=== PATIENT | male | born 1955 | race Caucasian/White ===

== ENCOUNTER 2017-08-13 12:52 | Emergency (ER) | payer OTHER ==
[~2017-08-13] VITALS: Ht 180.3 cm; Wt 112.5 kg
[2017-08-13] MEDS ORDERED: Heparin 2000 units/Ns 1000ml INJ ONE (13:15)
[2017-08-13] MEDS ORDERED: Lidocaine 1% Plain 30 ml INJ ONE (13:15)
--- NOTE | 2017-08-13 13:17 | Emergency Room Report ---
History of Present Illness General Chief Complaint: General Complaint Source: Patient, EMS Present Illness HPI Patient presents from nursing facility with need for long-term antibiotics Patient has been on peripheral antibiotics for osteomyelitis and lower extremity infections Patient at this time is requiring further antibiotic care And was felt by primary physician that PICC line would be more appropriate Patient himself denies any chest pain or shortness of breath Denies any fevers Allergies: Coded Allergies: No Known Allergies (Unverified , 08/13/17) Patient History Past Medical History: see triage record Pertinent Family History: none Reviewed Nursing Documentation: PMH: Agreed, PSxH: Agreed Nursing Documentation-PMH Past Medical History: No History, Except For Hx Cardiac Problems: No - GERD DM 2,HX MRSA ACCUTE KIDNEY FAILURE. Hx Hypertension: Yes Review of Systems All Other Systems: negative except mentioned in HPI Physical Exam Vital Signs Date Time Temp Pulse Resp B/P (MAP) Pulse Ox O2 Delivery O2 Flow Rate FiO2 08/13/17 13:00 97.9 80 18 160/89 96 Room Air Sp02 EP Interpretation: reviewed, normal General Appearance: well appearing, no apparent distress Head: normocephalic, atraumatic Eyes: bilateral eye PERRL, bilateral eye EOMI ENT: hearing grossly normal, normal pharynx, TMs + canals normal, uvula midline Neck: full range of motion, supple, no meningismus, no bony tend Respiratory: lungs clear, normal breath sounds, no rhonchi, no respiratory distress, no retraction, no accessory muscle use Gastrointestinal: non tender, soft Neurologic: alert, oriented x3 Skin: other - Patient has multiple ulcerations, peripheral IV in the right upper arm Lymphatic: no adenopathy Medical Decision Making Diagnostic Impression: Primary Impression: Osteomyelitis ER Course Patient has documented osteomyelitis requiring long-term antibiotics Patient is being provided antibiotics at outpatient facility however not able to be provided IV as there was no definitive IV line Radiology was contacted Unfortunately they are not able to perform this procedure given the number of other procedures are in line At this time patient has had a peripheral IV there does not appear to be any other emergent requirement for PICC line And the patient is transferred back to assisted to continue IV antibiotics Patient's primary physician was notified Last Vital Signs Date Time Temp Pulse Resp B/P (MAP) Pulse Ox O2 Delivery O2 Flow Rate FiO2 08/13/17 13:00 97.9 80 18 160/89 96 Room Air Status: improved Disposition: XFER SNF Condition: Stable Additional Instructions: Patient is provided with the discharge instructions notified to follow up with primary doctor in the next 2-3 days otherwise return to the er with any worsening symptoms. Please note that this report is being documented using [employer] technology. This can lead to erroneous entry secondary to incorrect interpretation by the dictating instrument. TIANNA KHALIL D.O. Aug 13, 2017 13:17
[2017-08-13 16:30] VITALS: BP 140/67
== END 2017-08-13 16:30 ==
LOC: EDBD 12:52 → EMR 13:30
DX: M86.9 Osteomyelitis, unspecified (principal); I10 Essential (primary) hypertension; K21.9 Gastro-esophageal reflux disease without esophagitis; E11.9 Type 2 diabetes mellitus without complications
CPT/HCPCS: 99283; J1644; J2001

== ENCOUNTER 2017-08-19 10:43 | Outpatient (CLI) | payer OTHER ==
--- NOTE | 2017-08-19 15:57 | Diagnostic Imaging Report ---
Indications: Needs long-term IV access Technique: Ultrasound confirms patent compressible left brachial vein. Total sterile technique, including sterile probe cover and sterile gel, hat, mask,, sterile gown, large sterile drape, and preparation with 2% chlorhexidine utilized. Local anesthesia with 1% lidocaine. Under real-time ultrasound guidance, puncture left brachial vein using 21-gauge needle, documented and archived, passage 0.018 guidewire under direct fluoroscopy. This would not pass beyond the level of the subclavian vein. A 5 Mexican peel-away sheath was inserted. Through this was inserted a Kumpe catheter, which was successfully used to direct the guidewire centrally. 5 Mexican Bard. However, dual-lumen power PICC cut to 46 cm. It was inserted through the peel-away sheath., But would not pass through the subclavian vein. Was therefore removed, and a 4 Mexican single-lumen power PICC was cut to 46 cm, inserted through the peel-away sheath. It was successfully directed through the presumably stenosed subclavian vein and into the superior vena cava. Peel-away sheath and guidewire removed. Catheter fixed to the skin. Catheter ports aspirated and flushed. Patient tolerated procedure well, without immediate complication. Digital radiograph documents satisfactory catheter tip position, at the midsuperior vena cava. Total fluoroscopy time one minutes. Total dose area product 9.9 dGycm2 Impression: Successful placement of Bard single-lumen left arm PICC under sonographic and fluoroscopic guidance, as described above. Note evidence of central venous stenosis, necessitating placement of a single-lumen catheter
== END 2017-08-19 12:43 | disposition home or self-care (01) ==
LOC: RAD 10:43
DX: M86.171 Other acute osteomyelitis, right ankle and foot (principal); B95.62 Methicillin resistant Staphylococcus aureus infection as the cause of diseases classified elsewhere; S91.302D Unspecified open wound, left foot, subsequent encounter; E11.621 Type 2 diabetes mellitus with foot ulcer; E78.01 Familial hypercholesterolemia; K21.9 Gastro-esophageal reflux disease without esophagitis; N17.9 Acute kidney failure, unspecified; E11.42 Type 2 diabetes mellitus with diabetic polyneuropathy; F29 Unspecified psychosis not due to a substance or known physiological condition; I10 Essential (primary) hypertension; X58.XXXD Exposure to other specified factors, subsequent encounter
CPT/HCPCS: 36569; 76937

== ENCOUNTER 2017-08-27 17:13 | Inpatient (IN) | payer OTHER, MEDICAID ==
[~2017-08-27] VITALS: Ht 175.3 cm; Wt 99.8 kg
[2017-08-27 17:13] VITALS: BP 178/97
[2017-08-27] MEDS ORDERED: FAMOTIDINE20 MG ORAL (17:50)
[2017-08-27] MEDS ORDERED: GABAPENTIN400 MG ORAL (17:50)
[2017-08-27] MEDS ORDERED: CLINDAMYCI600 MG/51 IV (17:50)
[2017-08-27] MEDS ORDERED: CEFEPIME-D2 GM/50 ML IVPB (17:50)
[2017-08-27] MEDS ORDERED: AMLODIPINE BESY10 MG ORAL (17:50)
[2017-08-27] MEDS ORDERED: COLACE100 MG ORAL (17:50)
[2017-08-27] MEDS ORDERED: HYDRALAZINE HCL10 MG ORAL (17:50)
[2017-08-27] MEDS ORDERED: ATORVASTATIN CA40 MG ORAL (17:50)
[2017-08-27] MEDS ORDERED: HEPARIN SO5000 UNIT2 SUBQ (17:50)
[2017-08-27] MEDS ORDERED: LANTUS SOL100 UNIT/1 SUBQ (17:52)
[2017-08-27] MEDS ORDERED: METRONIDAZ500 MG/100 IVPB (17:52)
[2017-08-27] MEDS ORDERED: ZINC SULFATE220 M1 ORAL (17:52)
[2017-08-27] MEDS ORDERED: QUETIAPINE FUMA50 MG ORAL (17:52)
[2017-08-27 18:05] LABS: BASOPHILS % (AUTO) 0.5 % (0.0-2.0); EOSINOPHILS % (AUTO) 5.9 % (0.0-3.0); LYMPHOCYTES % (AUTO) 18.8 % (20.0-45.0); MEAN CORPUSCULAR HEMOGLOBIN 26.4 PG (27.0-31.0); MEAN CORPUSCULAR HGB CONC 30.5 G/DL (32.0-36.0); MEAN CORPUSCULAR VOLUME 86 FL (80-99); MONOCYTES % (AUTO) 6.7 % (1.0-10.0); NEUTROPHILS % (AUTO) 68.1 % (45.0-75.0); PLATELET COUNT 231 K/UL (150-450); RED CELL DISTRIBUTION WIDTH 16.6 % (11.6-14.8); WHITE BLOOD COUNT 12.5 K/UL (4.8-10.8)
[2017-08-27 18:10] LABS: APPEARANCE,URINE CLEAR; KETONES,URINE NEGATIVE (NEGATIVE); LEUKOCYTE ESTERASE ,URINE 1+ (NEGATIVE); NITRITE,URINE NEGATIVE (NEGATIVE); PH,URINE 6 (4.5-8.0); PROTEIN,URINE 4+ (NEGATIVE); UROBILINOGEN,URINE NORMAL MG/DL (0.0-1.0)
[2017-08-27 18:18] LABS: RBC,URINE 0-2 /HPF (0 - 0); WBC,URINE 0-2 /HPF (0 - 0)
--- NOTE | 2017-08-27 18:37 | Emergency Room Report ---
History of Present Illness General Chief Complaint: Altered Level of Consciousness Source: Patient, Medical Record Present Illness HPI 61-year-old male presents ED for evaluation. Patient brought from retirement. Patient sent for evaluation. Patient is refusing all medical care at that facility including lab work and medication. patient does have a psychiatric history. Upon arrival patient showing no signs of distress. No agitation. States he feels fine. Denies hearing voices. Denies suicidal or homicidal ideation. Denies chest pain or shortness of breath. No aggravating or leading factors. Denies any other associated symptoms. Allergies: Coded Allergies: No Known Allergies (Unverified , 08/13/17) Patient History Past Medical History: HTN Past Surgical History: none Pertinent Family History: none Immunizations: UTD Reviewed Nursing Documentation: PMH: Agreed, PSxH: Agreed Nursing Documentation-PMH Past Medical History: No History, Except For Hx Cardiac Problems: No - GERD DM 2,HX MRSA ACCUTE KIDNEY FAILURE. Hx Hypertension: Yes Review of Systems All Other Systems: negative except mentioned in HPI Physical Exam Vital Signs Date Time Temp Pulse Resp B/P (MAP) Pulse Ox O2 Delivery O2 Flow Rate FiO2 08/27/17 17:07 98.1 74 18 151/93 98 Room Air Sp02 EP Interpretation: reviewed, normal General Appearance: no apparent distress, alert, GCS 15, non-toxic Head: normocephalic, atraumatic Eyes: bilateral eye normal inspection, bilateral eye PERRL ENT: hearing grossly normal, normal pharynx, no angioedema, normal voice Neck: full range of motion, supple/symm/no masses Respiratory: chest non-tender, lungs clear, normal breath sounds, speaking full sentences Cardiovascular #1: regular rate, rhythm, no edema Cardiovascular #2: 2+ carotid (R), 2+ carotid (L), 2+ radial (R), 2+ radial (L) , 2+ dorsalis pedis (R), 2+ dorsalis pedis (L) Gastrointestinal: normal bowel sounds, non tender, soft, non-distended, no guarding, no rebound Rectal: deferred Genitourinary: normal inspection, no CVA tenderness Musculoskeletal: back normal, gait/station normal, normal range of motion, non- tender Neurologic: alert, oriented x3, responsive, motor strength/tone normal, sensory intact, speech normal Psychiatric: judgement/insight normal, memory normal, mood/affect normal, no suicidal/homicidal ideation Reflexes: 3+ bicep (R), 3+ bicep (L), 3+ tricep (R), 3+ tricep (L), 3+ knee (R) , 3+ knee (L) Skin: normal color, no rash, warm/dry, well hydrated Lymphatic: no adenopathy Medical Decision Making Diagnostic Impression: Primary Impression: Altered level of consciousness Additional Impressions: Refusal of care by patient Renal insufficiency ER Course Hospital Course 61-year-old male presenting to ED with generalized weakness, refusing care at retirement Differential diagnoses include: Pneumonia, UTI, sepsis, dehydration, PA/ unstable angina, failure to thrive Clinical course Patient placed on stretcher. On bus monitor with tachycardia. After initial history and physical, I ordered labs, IV fluids, EKG Labs - noted luekocytosis, hb/hct stable, BUN/Cr elevated, trop negative EKG - NSR, no acute ischemic changes interpreted by me patient refused CXR Case discussed with Dr Trinidad and they agreed to admit patient to their service for further care and support I feel this is a highly complex case requiring extensive working including EKG/ Rhythm strip, Xray/CT/US, Blood/urine lab work, repeat exams while in ED, and administration of strong opiates/narcotics for pain control, admission to hospital or close patient follow up. Diagnosis - ALOC, refusal of care by patient, renal insufficiency Patient admitted to floor in serious condition Labs Test 08/27/17 17:45 08/27/17 17:49 White Blood Count 12.5 K/UL (4.8-10.8) Red Blood Count 3.10 M/UL (4.70-6.10) Hemoglobin 8.2 G/DL (14.2-18.0) Hematocrit 26.7 % (42.0-52.0) Mean Corpuscular Volume 86 FL (80-99) Mean Corpuscular Hemoglobin 26.4 PG (27.0-31.0) Mean Corpuscular Hemoglobin Concent 30.5 G/DL (32.0-36.0) Red Cell Distribution Width 16.6 % (11.6-14.8) Platelet Count 231 K/UL (150-450) Mean Platelet Volume 7.0 FL (6.5-10.1) Neutrophils (%) (Auto) 68.1 % (45.0-75.0) Lymphocytes (%) (Auto) 18.8 % (20.0-45.0) Monocytes (%) (Auto) 6.7 % (1.0-10.0) Eosinophils (%) (Auto) 5.9 % (0.0-3.0) Basophils (%) (Auto) 0.5 % (0.0-2.0) Sodium Level 140 MMOL/L (136-145) Potassium Level 3.6 MMOL/L (3.5-5.1) Chloride Level 106 MMOL/L (98-107) Carbon Dioxide Level 22 MMOL/L (21-32) Anion Gap 12 mmol/L (5-15) Blood Urea Nitrogen 43 mg/dL (7-18) Creatinine 1.9 MG/DL (0.55-1.30) Estimat Glomerular Filtration Rate 36.5 mL/min (>60) Glucose Level 334 MG/DL (74-106) Calcium Level 8.7 MG/DL (8.5-10.1) Total Bilirubin 0.3 MG/DL (0.2-1.0) Aspartate Amino Transf (AST/SGOT) 19 U/L (15-37) Alanine Aminotransferase (ALT/SGPT) 23 U/L (12-78) Alkaline Phosphatase 68 U/L (46-116) Total Creatine Kinase 149 U/L (26-140) Creatine Kinase MB 2.3 NG/ML (0.0-3.6) Creatine Kinase MB Relative Index 1.5 Troponin I 0.007 ng/mL (0.000-0.056) Total Protein 8.0 G/DL (6.4-8.2) Albumin 2.4 G/DL (3.4-5.0) Globulin 5.1 g/dL Albumin/Globulin Ratio 0.5 (1.0-2.7) Urine Color Pale yellow Urine Appearance Clear Urine pH 6 (4.5-8.0) Urine Specific [place] 1.015 (1.005-1.035) Urine Protein 4+ (NEGATIVE) Urine Glucose (UA) 4+ (NEGATIVE) Urine Ketones Negative (NEGATIVE) Urine Occult Blood 3+ (NEGATIVE) Urine Nitrite Negative (NEGATIVE) Urine Bilirubin Negative (NEGATIVE) Urine Urobilinogen Normal MG/DL (0.0-1.0) Urine Leukocyte Esterase 1+ (NEGATIVE) Urine RBC 0-2 /HPF (0 - 0) Urine WBC 0-2 /HPF (0 - 0) Urine Squamous Epithelial Cells None /LPF (NONE/OCC) Urine Bacteria None /HPF (NONE) EKG Diagnostic Results Rate: normal Rhythm: NSR ST Segments: no acute changes ASA given to the pt in ED: No Rhythm Strip Diag. Results EP Interpretation: yes Rhythm: NSR, no PVC's, no ectopy Last Vital Signs Date Time Temp Pulse Resp B/P (MAP) Pulse Ox O2 Delivery O2 Flow Rate FiO2 08/27/17 17:13 83 16 178/97 100 Room Air 08/27/17 17:07 98.1 Status: improved Disposition: ADMITTED INPATIENT Condition: Serious Referrals: SHARAD BARBA (PCP) SAIDA VASQUEZ M.D. Aug 27, 2017 18:37
[2017-08-27 18:51] VITALS: BP 159/71
[2017-08-27 18:57] LABS: ANION GAP 12 mmol/L (5-15); CARBON DIOXIDE 22 MMOL/L (21-32); CHLORIDE 106 MMOL/L (98-107); POTASSIUM 3.6 MMOL/L (3.5-5.1); SODIUM 140 MMOL/L (136-145)
[2017-08-27 18:58] LABS: ALANINE AMINOTRANSFERASE 23 U/L (12-78); ASPARTATE AMINO TRANSFERASE 19 U/L (15-37); CKMB 2.3 NG/ML (0.0-3.6)
[2017-08-27] MEDS ORDERED: LORazepam Inj 2mg/ml 1ml IV PRN (19:00)
[2017-08-27] MEDS ORDERED: Morphine Sulfate 2mg/ml Inj IVP PRN (19:00)
[2017-08-27] MEDS ORDERED: Mylanta II UD 30ml ORAL PRN (19:00)
[2017-08-27 19:19] LABS: CREATININE 1.9 MG/DL (0.55-1.30); GLOMERULAR FILTRATION RATE 36.5 mL/min (>60)
[2017-08-27 19:20] LABS: ALBUMIN/GLOBULIN RATIO 0.5 (1.0-2.7); CALCIUM 8.7 MG/DL (8.5-10.1)
[2017-08-27 20:22] VITALS: BP 161/78
[2017-08-27] MEDS ORDERED: ACETAMINOPHEN325 M1 ORAL (20:55)
[2017-08-27] MEDS ORDERED: VITAMIN C500 M1 ORAL (20:55)
[2017-08-27] MEDS ORDERED: HUMALOG100 UNIT/4 SUBQ (20:55)
[2017-08-27] MEDS ORDERED: MULTIVITAMINS1 EA14 PO (20:55)
[2017-08-27] MEDS ORDERED: Zolpidem 5mg tab ORAL PRN (21:00)
[2017-08-27] MEDS ORDERED: Miralax 17gm pkt ORAL PRN (21:00)
[2017-08-27] MEDS: HydrALAZINE 10mg Tab ORAL SCH (22:14)
[2017-08-28 04:00] VITALS: BP 155/88
[2017-08-28] MEDS: HydrALAZINE 10mg Tab ORAL SCH ×3 (05:24→17:29)
[2017-08-28] MEDS: NovoLOG Insulin Flexpen SUBQ SCH ×4 (06:31→20:42)
[2017-08-28 07:31] LABS: BASOPHILS % (AUTO) 0.6 % (0.0-2.0); EOSINOPHILS % (AUTO) 6.3 % (0.0-3.0); LYMPHOCYTES % (AUTO) 25.1 % (20.0-45.0); MEAN CORPUSCULAR HEMOGLOBIN 27.5 PG (27.0-31.0); MEAN CORPUSCULAR HGB CONC 32.4 G/DL (32.0-36.0); MEAN CORPUSCULAR VOLUME 85 FL (80-99); MEAN PLATELET VOLUME 7.5 FL (6.5-10.1); MONOCYTES % (AUTO) 7.3 % (1.0-10.0); NEUTROPHILS % (AUTO) 60.8 % (45.0-75.0); PLATELET COUNT 264 K/UL (150-450); RED BLOOD COUNT 4.12 M/UL (4.70-6.10); RED CELL DISTRIBUTION WIDTH 16.2 % (11.6-14.8); WHITE BLOOD COUNT 10.3 K/UL (4.8-10.8)
--- NOTE | 2017-08-28 07:48 | History and Physical ---
History of Present Illness General Date patient seen: Aug 28, 2017 Time patient seen: 07:00 Reason for Hospitalization: Altered Level of Consciousness Present Illness HPI 61-y/o male with PMH of psychiatric disorder, HTN, DM, recent acute osteo R ankle ( ? sp Rx), kidney disorder, presented to ED for evaluation. Patient was sent from longterm for evaluation. Per nursing staff, Patient was refusing all medical care at that facility including lab work and medication. Upon arrival no signs of distress. No agitation. Denied suicidal or homicidal ideation. Denied hallucinations ( auditory and visual) Denied chest pain and shortness of breath. per patient, he had problem with [facility]IG[facility] MENDER at the facility, requested to be transferred to another facility upon discharge workup in ED revealed leukocytosis-12.5 afebrile VSS anemia -8.2/26.7 renal failure -BUN-43 and creat 1.9 BS -334 UA negative CXR no acute cardiopulmonary pathology patient was admitted for further management Allergies: Coded Allergies: No Known Allergies (Unverified , 08/13/17) Medication History Scheduled Amlodipine Besylate* (Amlodipine Besylate*), 10 MG ORAL DAILY, (Reported) Ascorbic Acid* (Vitamin C*), 500 MG ORAL DAILY, (Reported) Atorvastatin Calcium* (Atorvastatin Calcium*), 40 MG ORAL BEDTIME, (Reported) Cefepime Hcl/D5w (Cefepime-Dextrose 2 Gm/50 Ml), 2 GM IVPB EVERY 12 HOURS, ( Reported) Clindamycin in 0.9 % Sod Chlor (Clindamycin 600 Mg/50 Ml-Ns), 600 MG IV EVERY 8 HOURS, (Reported) Docusate Sodium* (Colace*), 100 MG ORAL DAILY, (Reported) Famotidine (Famotidine), 20 MG ORAL DAILY, (Reported) Gabapentin* (Gabapentin*), 400 MG ORAL THREE TIMES A DAY, (Reported) Heparin Sod (Porcine) (Heparin Sodium*), 5,000 UNITS SUBQ EVERY 8 HOURS, ( Reported) Hydralazine Hcl* (Hydralazine Hcl*), 10 MG ORAL EVERY 6 HOURS, (Reported) Insulin Glargine (Lantus), 0 SUBQ BEDTIME, (Reported) Insulin Lispro (Humalog), 0 SUBQ AC+HS, (Reported) Metronidazole/Sodium Chloride* (Metronidazole 500 Mg/100 Ml*), 500 MG IVPB EVERY 8 HOURS, (Reported) Multivitamin (Multivitamins), 1 EACH PO DAILY, (Reported) Quetiapine Fumarate* (Quetiapine Fumarate*), 25 MG ORAL DAILY, (Reported) Zinc Sulfate (Zinc Sulfate*), 220 MG ORAL DAILY, (Reported) Scheduled PRN Acetaminophen* (Acetaminophen 325MG Tablet*), 325 MG ORAL Q4H PRN for Mild Pain/ Temp > 100.5, (Reported) Patient History Healthcare decision maker self Resuscitation status Full Code Advanced Directive on File Review of Systems Constitutional: Reports: weakness Eye: Reports: no symptoms ENT: Reports: no symptoms Respiratory: Reports: no symptoms Cardiovascular: Reports: no symptoms, other - HTN Gastrointestinal: Reports: no symptoms Genitourinary: Reports: no symptoms Musculoskeletal: Reports: no symptoms Skin: Reports: other - R ankle OM Psychiatric: Reports: other - psychiatric disorder Neurological: Reports: no symptoms Endocrine: Reports: other - diabetes Hematologic/Lymphatic: Reports: no symptoms Physical Exam General Appearance: WD/WN, no apparent distress, alert, obese Lines, tubes and drains: peripheral HEENT: normocephalic, atraumatic, anicteric, mucous membranes moist, PERRL Neck: supple Respiratory/Chest: lungs clear, no respiratory distress, no accessory muscle use Cardiovascular/Chest: normal rate, regular rhythm Abdomen: normal bowel sounds, non tender, soft - obese Skin Exam: warm/dry Neurologic: alert, responsive Musculoskeletal: normal muscle bulk Last 24 Hour Vital Signs Date Time Temp Pulse Resp B/P (MAP) Pulse Ox O2 Delivery O2 Flow Rate FiO2 08/28/17 05:24 155/88 08/28/17 04:00 97.5 82 21 155/88 95 Room Air 08/28/17 00:00 98.4 88 20 97 Room Air 88 08/27/17 22:14 175/83 08/27/17 20:30 98.2 79 16 161/78 100 Room Air 08/27/17 20:22 98.2 79 16 161/78 100 Room Air 08/27/17 18:51 79 16 159/71 100 Room Air 08/27/17 17:13 83 16 178/97 100 Room Air 08/27/17 17:07 98.1 74 18 151/93 98 Room Air Laboratory Tests Test 08/27/17 17:45 08/27/17 17:49 10/21/17 05:15 White Blood Count 12.5 K/UL (4.8-10.8) H Pending Red Blood Count 3.10 M/UL (4.70-6.10) L Pending Hemoglobin 8.2 G/DL (14.2-18.0) L Pending Hematocrit 26.7 % (42.0-52.0) L Pending Mean Corpuscular Volume 86 FL (80-99) Pending Mean Corpuscular Hemoglobin 26.4 PG (27.0-31.0) L Pending Mean Corpuscular Hemoglobin Concent 30.5 G/DL (32.0-36.0) L Pending Red Cell Distribution Width 16.6 % (11.6-14.8) H Pending Platelet Count 231 K/UL (150-450) Pending Mean Platelet Volume 7.0 FL (6.5-10.1) Pending Neutrophils (%) (Auto) 68.1 % (45.0-75.0) Pending Lymphocytes (%) (Auto) 18.8 % (20.0-45.0) L Pending Monocytes (%) (Auto) 6.7 % (1.0-10.0) Pending Eosinophils (%) (Auto) 5.9 % (0.0-3.0) H Pending Basophils (%) (Auto) 0.5 % (0.0-2.0) Pending Sodium Level 140 MMOL/L (136-145) Pending Potassium Level 3.6 MMOL/L (3.5-5.1) Pending Chloride Level 106 MMOL/L (98-107) Pending Carbon Dioxide Level 22 MMOL/L (21-32) Pending Anion Gap 12 mmol/L (5-15) Blood Urea Nitrogen 43 mg/dL (7-18) H Pending Creatinine 1.9 MG/DL (0.55-1.30) H Pending Estimat Glomerular Filtration Rate 36.5 mL/min (>60) Pending Glucose Level 334 MG/DL (74-106) H Pending Calcium Level 8.7 MG/DL (8.5-10.1) Pending Total Bilirubin 0.3 MG/DL (0.2-1.0) Pending Aspartate Amino Transf (AST/SGOT) 19 U/L (15-37) Pending Alanine Aminotransferase (ALT/SGPT) 23 U/L (12-78) Pending Alkaline Phosphatase 68 U/L (46-116) Pending Total Creatine Kinase 149 U/L (26-140) H Creatine Kinase MB 2.3 NG/ML (0.0-3.6) Creatine Kinase MB Relative Index 1.5 Troponin I 0.007 ng/mL (0.000-0.056) Total Protein 8.0 G/DL (6.4-8.2) Pending Albumin 2.4 G/DL (3.4-5.0) L Pending Globulin 5.1 g/dL Pending Albumin/Globulin Ratio 0.5 (1.0-2.7) L Urine Color Pale yellow Urine Appearance Clear Urine pH 6 (4.5-8.0) Urine Specific [place] 1.015 (1.005-1.035) Urine Protein 4+ (NEGATIVE) H Urine Glucose (UA) 4+ (NEGATIVE) H Urine Ketones Negative (NEGATIVE) Urine Occult Blood 3+ (NEGATIVE) H Urine Nitrite Negative (NEGATIVE) Urine Bilirubin Negative (NEGATIVE) Urine Urobilinogen Normal MG/DL (0.0-1.0) Urine Leukocyte Esterase 1+ (NEGATIVE) H Urine RBC 0-2 /HPF (0 - 0) H Urine WBC 0-2 /HPF (0 - 0) Urine Squamous Epithelial Cells None /LPF (NONE/OCC) Urine Bacteria None /HPF (NONE) Hemoglobin A1c Pending Triglycerides Level Pending Cholesterol Level Pending LDL Cholesterol Pending HDL Cholesterol Pending Cholesterol/HDL Ratio Pending Thyroid Stimulating Hormone (TSH) Pending Height (Feet): 5 Height (Inches): 9.00 Weight (Pounds): 220 Medications Current Medications Medications (Trade) Dose Ordered Sig/Eveline Route PRN Reason Start Time Stop Time Status Last Admin Dose Admin Acetaminophen (Tylenol) 650 mg Q4H PRN ORAL T>100.5 08/27/17 19:00 09/26/17 18:59 Al Hydroxide/Mg Hydroxide (Mylanta II) 30 ml Q6H PRN ORAL dyspepsia 08/27/17 19:00 09/26/17 18:59 Amlodipine Besylate (Norvasc) 10 mg DAILY ORAL 08/28/17 09:00 09/27/17 08:59 Atorvastatin Calcium (Lipitor) 40 mg BEDTIME ORAL 08/27/17 21:00 09/26/17 20:59 08/27/17 22:14 Chlorhexidine Gluconate (Susan-Hex 2%) 1 applic DAILY@1999 TOPIC 08/28/17 20:00 09/27/17 19:59 Dextrose (Dextrose 50%) STAT PRN IV Hypoglycemia 08/27/17 22:30 09/26/17 22:29 Gabapentin (Neurontin) 400 mg THREE TIMES A DAY ORAL 08/28/17 09:00 09/27/17 08:59 Hydralazine HCl (Apresoline) 10 mg EVERY 6 HOURS ORAL 08/28/17 00:00 09/27/17 00:00 08/28/17 05:24 Insulin Aspart (NovoLOG) BEFORE MEALS AND HS SUBQ 08/28/17 06:30 09/27/17 06:29 08/28/17 06:31 Insulin Detemir (Levemir) 20 units BEDTIME SUBQ 08/28/17 21:00 09/27/17 20:59 Lorazepam (Ativan 2mg/ml 1ml) 0.5 mg Q4H PRN IV For Anxiety 08/27/17 19:00 09/03/17 18:59 Morphine Sulfate (Morphine Sulfate) 1 mg Q4H PRN IVP PAIN 4-10 08/27/17 19:00 09/03/17 18:59 Ondansetron HCl (Zofran) 4 mg Q6H PRN IVP Nausea & Vomiting 08/27/17 19:00 09/26/17 18:59 Polyethylene Glycol (Miralax) 17 gm HSPRN PRN ORAL Constipation 08/27/17 21:00 09/26/17 20:59 Quetiapine Fumarate (SEROquel) 25 mg DAILY ORAL 08/28/17 09:00 09/27/17 08:59 Zolpidem Tartrate (Ambien) 5 mg HSPRN PRN ORAL Insomnia 08/27/17 21:00 09/03/17 20:59 Assessment/Plan Assessment/Plan ASSESSMENT acute toxic metabolic encephalopathy -resolved ARF vs CKD acute OM R ankle anemia hyperglycemia 2 to DM refusal of care DM HTN bilateral leg wounds leukocytosis PLAN OF CARE MS floor IVF, monitor renal parameters, lytes , avoid nephrotoxic renal US nephro eval ID eval will wait for ID eval re abx regimen for a R ankle OM wound care nurse eval re recommendations for further wound care BP management with CCB and Hydralazine, optimize as needed continue statin check lipid panel resume psych meds psych eval BS management with SS of insulin, check HgA1c optimize further as needed venous Duplex BLE dietary eval CXR O2 HHN prn urine tox screen bowel regimen heme eval anemia w/up, monitor counts, transfuse prn stool OB and CEA urine tox screen dc event planner consult for possible transfer to another [facility] case discussed and evaluated by supervising physician Tano ([facility]),Fiordaliza MARTIN Aug 28, 2017 07:48
[2017-08-28 08:32] VITALS: BP 141/87
[2017-08-28 08:32] LABS: ALANINE AMINOTRANSFERASE 14 U/L (12-78); ALBUMIN/GLOBULIN RATIO 0.5 (1.0-2.7); ANION GAP 8 mmol/L (5-15); ASPARTATE AMINO TRANSFERASE 12 U/L (15-37); CALCIUM 8.6 MG/DL (8.5-10.1); CARBON DIOXIDE 24 MMOL/L (21-32); CHLORIDE 105 MMOL/L (98-107); CHOLESTEROL 135 MG/DL (< 200); CHOLESTEROL/HDL RATIO 5.2 (3.3-4.4); CREATININE 1.9 MG/DL (0.55-1.30); GLOMERULAR FILTRATION RATE 36.5 mL/min (>60); POTASSIUM 4.3 MMOL/L (3.5-5.1); SODIUM 137 MMOL/L (136-145); THYROID STIMULATING HORMONE 1.084 uiU/mL (0.360-3.740)
[2017-08-28 11:18] VITALS: BP 147/83
--- NOTE | 2017-08-28 11:24 | Diagnostic Imaging Report ---
Indication: Dyspnea Comparison: None A single view chest radiograph was obtained. Findings: Cardiomediastinal appearance is within normal limits for age. Pulmonary vascularity is appropriate. The diaphragmatic contour is smooth and costophrenic angles are sharp. No pleural effusions are identified. The bones are unremarkable. Impression: No acute findings
[2017-08-28 14:12] LABS: FERRITIN 34 NG/ML (8-388)
[2017-08-28 14:35] LABS: FOLIC ACID 11.4 NG/ML (3.1-17.5); IRON 32 ug/dL (50-175); TOTAL IRON BINDING CAPACITY 178 ug/dL (250-450)
[2017-08-28 15:58] VITALS: BP 131/73
[2017-08-28 20:00] VITALS: BP 159/84
[2017-08-28] MEDS: Dyna-Hex 2% Top Sol 2oz TOPIC SCH (20:43)
[2017-08-28] MEDS ORDERED: Levemir Flexpen SUBQ SCH (21:00)
[2017-08-28] MEDS ORDERED: Haloperidol Decanoate 50mg Inj IM ONE (23:30)
[2017-08-29] VITALS: BP 153/79
[2017-08-29] MEDS: HydrALAZINE 10mg Tab ORAL SCH ×4 (00:04→17:09)
--- NOTE | 2017-08-29 01:15 | Consultation ---
DATE OF CONSULTATION: 08/28/2017 TIME SEEN: At 11 a.m. CONSULTING PHYSICIAN: Kong Starr D.O. CHIEF COMPLAINT: Increased confusion. HISTORY OF PRESENT ILLNESS: This is a 61-year-old male from [facility] presented with above-mentioned diagnosis, also foot wound, diabetes. The patient admitted to medical floor for further treatment. Currently, more alert. No complaints. PAST MEDICAL HISTORY: Altered mental status, foot wound, diabetes, and hypertension. PAST SURGICAL HISTORY: Foot surgery. MEDICATIONS: Levemir, Norvasc, Neurontin, Seroquel, Apresoline, Lipitor, MiraLAX, Ambien, Tylenol, morphine and Zofran. ALLERGIES: Denies. SOCIAL HISTORY: Positive smoking. No alcohol. No intravenous drug abuse. FAMILY HISTORY: Noncontributory. REVIEW OF SYSTEMS: No chest pain. No short of breath. No nausea, vomiting, or diarrhea. PHYSICAL EXAMINATION: GENERAL: Calm in bed, oriented x2, in no acute distress. VITAL SIGNS: Temperature is 97 degrees, pulse 85, respirations 20, and blood pressure 141/87. CARDIOVASCULAR: No murmurs. LUNGS: Poor exchange. ABDOMEN: Bowel sounds are positive. Nontender and nondistended. EXTREMITIES: No cyanosis, clubbing, or edema. NEUROLOGICAL: The patient moves all extremities, but does not want to follow commands. Bilateral foot dressing is slightly soiled. No bleeding noted. LABORATORY AND DIAGNOSTIC DATA: Hemoglobin 11.3, otherwise CBC is normal. BMP show BUN and creatinine of 30/1.9 and glucose 295 otherwise, BMP is normal. Urinalysis shows 1+ leukocyte esterase. ASSESSMENT: 1. Altered mental status. 2. Foot wound bilaterally. 3. Renal insufficiency. 4. Diabetes. 5. Hypertension. 6. Anemia. PLAN: 1. Wound care. 2. Antibiotics per Infectious Disease. 3. Blood pressure and blood sugar control. 4. Nephrology followup. 5. Dietary followup. 6. Psychiatric treatment. 7. OT/PT. 8. Dietary evaluation. 9. CBC and BMP in the morning. Kong Starr D.O. DR: KAYLA JOB#: [id number] CC:
[2017-08-29 03:11] VITALS: BP 152/90
[2017-08-29] MEDS: NovoLOG Insulin Flexpen SUBQ SCH ×6 (06:27→21:03)
[2017-08-29 07:46] LABS: BASOPHILS % (AUTO) 0.5 % (0.0-2.0); EOSINOPHILS % (AUTO) 4.5 % (0.0-3.0); LYMPHOCYTES % (AUTO) 27.6 % (20.0-45.0); MEAN CORPUSCULAR HEMOGLOBIN 27.6 PG (27.0-31.0); MEAN CORPUSCULAR HGB CONC 32.5 G/DL (32.0-36.0); MEAN CORPUSCULAR VOLUME 85 FL (80-99); MEAN PLATELET VOLUME 7.4 FL (6.5-10.1); MONOCYTES % (AUTO) 6.4 % (1.0-10.0); PLATELET COUNT 249 K/UL (150-450); RED BLOOD COUNT 4.06 M/UL (4.70-6.10); RED CELL DISTRIBUTION WIDTH 16.7 % (11.6-14.8); WHITE BLOOD COUNT 9.8 K/UL (4.8-10.8)
[2017-08-29 08:09] VITALS: BP 129/78
[2017-08-29 08:16] LABS: ANION GAP 8 mmol/L (5-15); CALCIUM 8.3 MG/DL (8.5-10.1); CARBON DIOXIDE 23 MMOL/L (21-32); CHLORIDE 108 MMOL/L (98-107); CREATININE 1.8 MG/DL (0.55-1.30); GLOMERULAR FILTRATION RATE 38.8 mL/min (>60); POTASSIUM 5.3 MMOL/L (3.5-5.1); SODIUM 139 MMOL/L (136-145)
--- NOTE | 2017-08-29 08:24 | Pulmonology Progress Note ---
Assessment/Plan Assessment/Plan ASSESSMENT acute toxic metabolic encephalopathy -resolved ARF vs CKD acute OM R ankle anemia hyperglycemia 2 to DM refusal of care DM OOC HTN PLAN OF CARE MS floor IVF, monitor renal parameters, lytes , avoid nephrotoxic renal US nephro eval mental status back to normal acute encephalopathy possibly combination of psych disorder and renal failure urine tox screen negative ID eval still pending we will start abx that patient was on before : Cefepime 2 g IV q 12 till 09/16/17 Clindamycin 600 mg IV q 8 till 09/16 Flagyl 500 mg IV q 8 till 09/08 ID can modify treatment later when see the patient wound care nurse eval re recommendations for further wound care BP management with CCB and Hydralazine, optimize as needed continue statin lipid panel with elevated TG, otherwise stable educated on low fat low cholesterol diet resume psych meds psych eval BS management with SS of insulin, HgA1c -11.0, not at goal increase Levemir to bid andstarted on premeal insulin, SS of insulin prn venous Duplex BLE dietary eval CXR O2 HHN prn urine tox screen negative bowel regimen heme eval anemia w/up noted monitor counts, transfuse prn stool OB and CEA urine tox screen dc site planner consult for possible transfer to another [facility] case discussed and evaluated by supervising physician Subjective Allergies: Coded Allergies: No Known Allergies (Unverified , 08/13/17) Subjective no signs of distress denies CP, SOB no n/v/diarrhea, no abdominal pain creat remain elevated Objective Last 24 Hour Vital Signs Date Time Temp Pulse Resp B/P (MAP) Pulse Ox O2 Delivery O2 Flow Rate FiO2 08/29/17 08:09 97.9 78 20 129/78 96 Room Air 08/29/17 05:48 152/90 08/29/17 03:11 97.2 71 18 152/90 99 Room Air 08/29/17 00:04 153/79 08/29/17 00:00 97.5 76 22 153/79 96 Room Air 08/28/17 20:00 97.2 82 20 159/84 96 Room Air 08/28/17 17:29 131/73 08/28/17 15:58 97.2 82 20 131/73 96 Room Air 08/28/17 12:00 147/83 08/28/17 11:18 97.5 76 19 147/83 97 Room Air 08/28/17 09:21 85 141/87 08/28/17 08:32 97.2 85 20 141/87 98 Room Air Objective General Appearance: WD/WN, no apparent distress, alert, obese Lines, tubes and drains: peripheral HEENT: normocephalic, atraumatic, anicteric, mucous membranes moist, PERRL Neck: supple Respiratory/Chest: lungs clear, no respiratory distress, no accessory muscle use Cardiovascular/Chest: normal rate, regular rhythm Abdomen: normal bowel sounds, non tender, soft , obese Skin Exam: warm/dry, bilateral leg wounds Neurologic: alert, responsive Musculoskeletal: normal muscle bulk Laboratory Tests 08/28/17 16:15: Urine Opiates Screen Negative, Urine Barbiturates Screen Negative, Phencyclidine (PCP) Screen Negative, Urine Amphetamines Screen Negative, Urine Benzodiazepines Screen Negative, Urine Cocaine Screen Negative, Urine Marijuana (THC) Screen Negative 08/29/17 00:45: Urine Eosinophils [Pending], Urine Random Creatinine [Pending], Urine Random Microalbumin [Pending], Urine Random Total Protein 487H, Urine Random Sodium 93 , Urine Creatinine 51.0, Urine Microalbumin/Creatinine Ratio [Pending] 08/29/17 05:40: White Blood Count 9.8, Red Blood Count 4.06L, Hemoglobin 11.2L, Hematocrit 34.5L , Mean Corpuscular Volume 85, Mean Corpuscular Hemoglobin 27.6, Mean Corpuscular Hemoglobin Concent 32.5, Red Cell Distribution Width 16.7H, Platelet Count 249, Mean Platelet Volume 7.4, Neutrophils (%) (Auto) 61.0, Lymphocytes (%) (Auto) 27.6, Monocytes (%) (Auto) 6.4, Eosinophils (%) (Auto) 4.5H, Basophils (%) (Auto) 0.5, Sodium Level [Pending], Potassium Level [Pending ], Chloride Level [Pending], Carbon Dioxide Level [Pending], Blood Urea Nitrogen [Pending], Creatinine [Pending], Estimat Glomerular Filtration Rate [ Pending], Glucose Level [Pending], Calcium Level [Pending] Current Medications Medications (Trade) Dose Ordered Sig/Eveline Route PRN Reason Start Time Stop Time Status Last Admin Dose Admin Acetaminophen (Tylenol) 650 mg Q4H PRN ORAL T>100.5 08/27/17 19:00 09/26/17 18:59 Al Hydroxide/Mg Hydroxide (Mylanta II) 30 ml Q6H PRN ORAL dyspepsia 08/27/17 19:00 09/26/17 18:59 Amlodipine Besylate (Norvasc) 10 mg DAILY ORAL 08/28/17 09:00 09/27/17 08:59 08/28/17 09:21 Atorvastatin Calcium (Lipitor) 40 mg BEDTIME ORAL 08/27/17 21:00 09/26/17 20:59 08/28/17 20:39 Chlorhexidine Gluconate (Susan-Hex 2%) 1 applic DAILY@2000 TOPIC 08/28/17 20:00 09/27/17 19:59 08/28/17 20:43 Dextrose (Dextrose 50%) STAT PRN IV Hypoglycemia 08/27/17 22:30 09/26/17 22:29 Gabapentin (Neurontin) 400 mg THREE TIMES A DAY ORAL 08/28/17 09:00 09/27/17 08:59 08/28/17 17:29 Haloperidol Decanoate (Haldol) 50 mg ONCE ONCE IM 08/29/17 09:00 08/29/17 09:01 Hydralazine HCl (Apresoline) 10 mg EVERY 6 HOURS ORAL 08/28/17 00:00 09/27/17 00:00 08/29/17 05:48 Insulin Aspart (NovoLOG) BEFORE MEALS AND HS SUBQ 08/28/17 06:30 09/27/17 06:29 08/29/17 06:27 Insulin Detemir (Levemir) 20 units BEDTIME SUBQ 08/28/17 21:00 09/27/17 20:59 08/28/17 20:41 Lorazepam (Ativan 2mg/ml 1ml) 0.5 mg Q4H PRN IV For Anxiety 08/27/17 19:00 09/03/17 18:59 Morphine Sulfate (Morphine Sulfate) 1 mg Q4H PRN IVP PAIN 4-10 08/27/17 19:00 09/03/17 18:59 Ondansetron HCl (Zofran) 4 mg Q6H PRN IVP Nausea & Vomiting 08/27/17 19:00 11/19/17 18:59 Polyethylene Glycol (Miralax) 17 gm HSPRN PRN ORAL Constipation 08/27/17 21:00 09/26/17 20:59 Risperidone (RisperDAL) 2 mg BEDTIME ORAL 08/29/17 21:00 09/28/17 20:59 Sodium Chloride 1,000 ml @ 75 mls/hr [id number] IV 08/28/17 14:00 09/27/17 13:59 08/29/17 02:26 Zolpidem Tartrate (Ambien) 5 mg HSPRN PRN ORAL Insomnia 08/27/17 21:00 09/03/17 20:59 [place] ([facility])Fiordaliza NP Aug 29, 2017 08:24
[2017-08-29] MEDS ORDERED: Haloperidol Decanoate 50mg Inj IM ONE (09:00)
[2017-08-29] MEDS: Levemir Flexpen SUBQ SCH ×2 (09:19→17:13)
--- NOTE | 2017-08-29 09:36 | General Progress Note ---
Assessment/Plan Problem List: (1) Renal insufficiency ICD Codes: N28.9 - Disorder of kidney and ureter, unspecified SNOMED: 685637553 (2) Altered level of consciousness ICD Codes: R40.4 - Transient alteration of awareness SNOMED: 5193773 (3) Refusal of care by patient ICD Codes: Z53.29 - Procedure and treatment not carried out because of patient' s decision for other reasons SNOMED: 564321410, 371908051 (4) Osteomyelitis of ankle ICD Codes: M86.9 - Osteomyelitis, unspecified SNOMED: 624549210 (5) Psychiatric diagnosis ICD Codes: F99 - Mental disorder, not otherwise specified SNOMED: 06209888, 339469655 (6) acute renal failrue (7) Anemia ICD Codes: D64.9 - Anemia, unspecified SNOMED: 878874876 Status: stable, progressing, tolerating diet Assessment/Plan ot pt diet ot pt diet abx Subjective Constitutional: Reports: weakness Allergies: Coded Allergies: No Known Allergies (Unverified , 08/13/17) All Systems: reviewed and negative except above Subjective calm in bed Objective Last 24 Hour Vital Signs Date Time Temp Pulse Resp B/P (MAP) Pulse Ox O2 Delivery O2 Flow Rate FiO2 08/29/17 09:16 78 129/78 08/29/17 08:09 97.9 78 20 129/78 96 Room Air 08/29/17 05:48 152/90 08/29/17 03:11 97.2 71 18 152/90 99 Room Air 08/29/17 00:04 153/79 08/29/17 00:00 97.5 76 22 153/79 96 Room Air 08/28/17 20:00 97.2 82 20 159/84 96 Room Air 08/28/17 17:29 131/73 08/28/17 15:58 97.2 82 20 131/73 96 Room Air 08/28/17 12:00 147/83 08/28/17 11:18 97.5 76 19 147/83 97 Room Air Laboratory Tests 08/28/17 16:15: Urine Opiates Screen Negative, Urine Barbiturates Screen Negative, Phencyclidine (PCP) Screen Negative, Urine Amphetamines Screen Negative, Urine Benzodiazepines Screen Negative, Urine Cocaine Screen Negative, Urine Marijuana (THC) Screen Negative 08/29/17 00:45: Urine Eosinophils None seen, Urine Random Creatinine [Pending], Urine Random Microalbumin [Pending], Urine Random Total Protein 487H, Urine Random Sodium 93 , Urine Creatinine 51.0, Urine Microalbumin/Creatinine Ratio [Pending] 08/29/17 05:40: White Blood Count 9.8, Red Blood Count 4.06L, Hemoglobin 11.2L, Hematocrit 34.5L , Mean Corpuscular Volume 85, Mean Corpuscular Hemoglobin 27.6, Mean Corpuscular Hemoglobin Concent 32.5, Red Cell Distribution Width 16.7H, Platelet Count 249, Mean Platelet Volume 7.4, Neutrophils (%) (Auto) 61.0, Lymphocytes (%) (Auto) 27.6, Monocytes (%) (Auto) 6.4, Eosinophils (%) (Auto) 4.5H, Basophils (%) (Auto) 0.5, Sodium Level 139, Potassium Level 5.3H, Chloride Level 108H, Carbon Dioxide Level 23, Anion Gap 8, Blood Urea Nitrogen 39H, Creatinine 1.8H, Estimat Glomerular Filtration Rate 38.8, Glucose Level 292H, Calcium Level 8.3L Height (Feet): 5 Height (Inches): 9.00 Weight (Pounds): 220 General Appearance: lethargic EENT: normal ENT inspection Neck: normal alignment Cardiovascular: normal peripheral pulses, normal rate, regular rhythm Respiratory/Chest: chest wall non-tender, lungs clear, normal breath sounds Abdomen: normal bowel sounds, non tender, soft Extremities: normal inspection Edema: no edema noted Arm (L), no edema noted Arm (R), no edema noted Leg (L), no edema noted Leg (R), no edema noted Pedal (L), no edema noted Pedal (R), no edema noted Generalized Neurologic: motor weakness Skin: normal pigmentation, warm/dry SHARAD BARBA Aug 29, 2017 09:36
[2017-08-29 11:16] VITALS: BP 155/86
--- NOTE | 2017-08-29 11:20 | Diagnostic Imaging Report ---
Indication:Elevated Bun and Creatinine. Technique: Grayscale and duplex Doppler imaging of the kidneys performed. Comparison: None Findings: The size, contour, and echogenicity of both kidneys are within normal limits. There is no hydronephrosis. The IVC and urinary bladder are unremarkable. Right kidney is 12.6 CM. The left kidney is 10.2 CM in size. Impression: Negative study
--- NOTE | 2017-08-29 11:52 | General Progress Note ---
Progress Note Progress Note [id number] full note dictated ORTEGA DE PAZ Aug 29, 2017 11:52
[2017-08-29] MEDS: Cefepime HCl 2 GM in D5W 110 ML IVPB SCH ×3 (12:08→23:00)
--- NOTE | 2017-08-29 12:27 | Infectious Diseases Prog Note ---
Assessment/Plan Assessment/Plan ID consult dictated # [id number] Subjective Allergies: Coded Allergies: No Known Allergies (Unverified , 08/13/17) Objective Vital Signs Last 24 Hour Vital Signs Date Time Temp Pulse Resp B/P (MAP) Pulse Ox O2 Delivery O2 Flow Rate FiO2 08/29/17 12:08 155/86 08/29/17 11:16 97.6 71 19 155/86 97 Room Air 08/29/17 09:16 78 129/78 08/29/17 08:09 97.9 78 20 129/78 96 Room Air 08/29/17 05:48 152/90 08/29/17 03:11 97.2 71 18 152/90 99 Room Air 08/29/17 00:04 153/79 08/29/17 00:00 97.5 76 22 153/79 96 Room Air 08/28/17 20:00 97.2 82 20 159/84 96 Room Air 08/28/17 17:29 131/73 08/28/17 15:58 97.2 82 20 131/73 96 Room Air Height (Feet): 5 Height (Inches): 9.00 Weight (Pounds): 220 Laboratory Tests Test 08/28/17 16:15 08/29/17 00:45 08/29/17 05:40 Urine Opiates Screen Negative (NEGATIVE) Urine Barbiturates Screen Negative (NEGATIVE) Phencyclidine (PCP) Screen Negative (NEGATIVE) Urine Amphetamines Screen Negative (NEGATIVE) Urine Benzodiazepines Screen Negative (NEGATIVE) Urine Cocaine Screen Negative (NEGATIVE) Urine Marijuana (THC) Screen Negative (NEGATIVE) Urine Eosinophils None seen Urine Random Creatinine Pending Urine Random Microalbumin Pending Urine Random Total Protein 487 MG/DL (< 11.9) H Urine Random Sodium 93 MEQ/L (20-110) Urine Creatinine 51.0 MG/DL (30.0-125.0) Urine Microalbumin/Creatinine Ratio Pending White Blood Count 9.8 K/UL (4.8-10.8) Red Blood Count 4.06 M/UL (4.70-6.10) L Hemoglobin 11.2 G/DL (14.2-18.0) L Hematocrit 34.5 % (42.0-52.0) L Mean Corpuscular Volume 85 FL (80-99) Mean Corpuscular Hemoglobin 27.6 PG (27.0-31.0) Mean Corpuscular Hemoglobin Concent 32.5 G/DL (32.0-36.0) Red Cell Distribution Width 16.7 % (11.6-14.8) H Platelet Count 249 K/UL (150-450) Mean Platelet Volume 7.4 FL (6.5-10.1) Neutrophils (%) (Auto) 61.0 % (45.0-75.0) Lymphocytes (%) (Auto) 27.6 % (20.0-45.0) Monocytes (%) (Auto) 6.4 % (1.0-10.0) Eosinophils (%) (Auto) 4.5 % (0.0-3.0) H Basophils (%) (Auto) 0.5 % (0.0-2.0) Sodium Level 139 MMOL/L (136-145) Potassium Level 5.3 MMOL/L (3.5-5.1) H Chloride Level 108 MMOL/L (98-107) H Carbon Dioxide Level 23 MMOL/L (21-32) Anion Gap 8 mmol/L (5-15) Blood Urea Nitrogen 39 mg/dL (7-18) H Creatinine 1.8 MG/DL (0.55-1.30) H Estimat Glomerular Filtration Rate 38.8 mL/min (>60) Glucose Level 292 MG/DL (74-106) H Calcium Level 8.3 MG/DL (8.5-10.1) L Phosphorus Level Pending Vitamin D 25-Hydroxy Pending 25-Hydroxy Vitamin D2 Pending 25-Hydroxy Vitamin D3 Pending Current Medications Medications (Trade) Dose Ordered Sig/Eveline Route PRN Reason Start Time Stop Time Status Last Admin Dose Admin Acetaminophen (Tylenol) 650 mg Q4H PRN ORAL T>100.5 08/27/17 19:00 09/26/17 18:59 Al Hydroxide/Mg Hydroxide (Mylanta II) 30 ml Q6H PRN ORAL dyspepsia 08/27/17 19:00 09/26/17 18:59 Amlodipine Besylate (Norvasc) 10 mg DAILY ORAL 08/28/17 09:00 09/27/17 08:59 08/29/17 09:16 Atorvastatin Calcium (Lipitor) 40 mg BEDTIME ORAL 08/27/17 21:00 09/26/17 20:59 08/28/17 20:39 Cefepime HCl 2 gm/ Dextrose 110 ml @ 220 mls/hr Q12H IVPB 08/29/17 12:00 09/05/17 11:59 08/29/17 12:08 Chlorhexidine Gluconate (Susan-Hex 2%) 1 applic DAILY@2000 TOPIC 08/28/17 20:00 09/27/17 19:59 08/28/17 20:43 Clindamycin HCl/ Dextrose 50 ml @ 100 mls/hr Q8HR IVPB 08/29/17 14:00 09/05/17 13:59 Dextrose (Dextrose 50%) STAT PRN IV Hypoglycemia 08/27/17 22:30 09/26/17 22:29 Gabapentin (Neurontin) 400 mg THREE TIMES A DAY ORAL 08/28/17 09:00 09/27/17 08:59 08/29/17 12:08 Hydralazine HCl (Apresoline) 10 mg EVERY 6 HOURS ORAL 08/28/17 00:00 09/27/17 00:00 08/29/17 12:08 Insulin Aspart (NovoLOG) BEFORE MEALS AND HS SUBQ 08/28/17 06:30 09/27/17 06:29 08/29/17 12:09 Insulin Aspart (NovoLOG) 5 units NOVOTIAC SUBQ 08/29/17 11:50 09/28/17 11:49 08/29/17 12:10 Insulin Detemir (Levemir) 20 units BID SUBQ 08/29/17 09:00 09/27/17 20:59 08/29/17 09:19 Lorazepam (Ativan 2mg/ml 1ml) 0.5 mg Q4H PRN IV For Anxiety 08/27/17 19:00 09/03/17 18:59 Metronidazole 100 ml @ 100 mls/hr Q8H IVPB 08/29/17 16:00 09/05/17 15:59 Morphine Sulfate (Morphine Sulfate) 1 mg Q4H PRN IVP PAIN 4-10 08/27/17 19:00 09/03/17 18:59 Ondansetron HCl (Zofran) 4 mg Q6H PRN IVP Nausea & Vomiting 08/27/17 19:00 09/26/17 18:59 Polyethylene Glycol (Miralax) 17 gm HSPRN PRN ORAL Constipation 10/20/17 21:00 09/26/17 20:59 Risperidone (RisperDAL) 2 mg BEDTIME ORAL 08/29/17 21:00 09/28/17 20:59 Sodium Chloride 1,000 ml @ 75 mls/hr [id number] IV 08/28/17 14:00 09/27/17 13:59 08/29/17 02:26 Zolpidem Tartrate (Ambien) 5 mg HSPRN PRN ORAL Insomnia 08/27/17 21:00 09/03/17 20:59 TAVON GARIBAY Aug 29, 2017 12:27
[2017-08-29] MEDS: Clindamycin 600mg 50 ML IVPB SCH ×2 (13:39→21:11)
[2017-08-29 16:03] VITALS: BP 161/84
--- NOTE | 2017-08-29 17:33 | Cardiology Report ---
APPROVED REPORT EKG Measurement Heart [id number] Normal sinus rhythm Possible Inferior infarct, age undetermined Abnormal ECG
[2017-08-29 20:00] VITALS: BP 143/83
[2017-08-29] MEDS: Dyna-Hex 2% Top Sol 2oz TOPIC SCH (20:00)
--- NOTE | 2017-08-29 23:47 | General Progress Note ---
Subjective Allergies: Coded Allergies: No Known Allergies (Unverified , 08/13/17) Objective Last 24 Hour Vital Signs Date Time Temp Pulse Resp B/P (MAP) Pulse Ox O2 Delivery O2 Flow Rate FiO2 08/29/17 20:00 97.9 75 20 143/83 100 Room Air 08/29/17 17:46 161/84 08/29/17 17:09 161/84 08/29/17 16:03 97.5 72 19 161/84 96 Room Air 08/29/17 12:08 155/86 08/29/17 11:16 97.6 71 19 155/86 97 Room Air 08/29/17 09:16 78 129/78 08/29/17 08:09 97.9 78 20 129/78 96 Room Air 08/29/17 05:48 152/90 08/29/17 03:11 97.2 71 18 152/90 99 Room Air 08/29/17 00:04 153/79 08/29/17 00:00 97.5 76 22 153/79 96 Room Air Intake and Output 08/29/17 08/30/17 19:00 07:00 Intake Total 635 ml 435 ml Output Total 520 ml Balance 115 ml 435 ml Intake Oral 560 ml IV Total 75 ml 435 ml Output Urine Total 520 ml Laboratory Tests 08/29/17 00:45: Urine Eosinophils None seen, Urine Random Creatinine [Pending], Urine Random Microalbumin [Pending], Urine Random Total Protein 487H, Urine Random Sodium 93 , Urine Creatinine 51.0, Urine Microalbumin/Creatinine Ratio [Pending] 08/29/17 05:40: White Blood Count 9.8, Red Blood Count 4.06L, Hemoglobin 11.2L, Hematocrit 34.5L , Mean Corpuscular Volume 85, Mean Corpuscular Hemoglobin 27.6, Mean Corpuscular Hemoglobin Concent 32.5, Red Cell Distribution Width 16.7H, Platelet Count 249, Mean Platelet Volume 7.4, Neutrophils (%) (Auto) 61.0, Lymphocytes (%) (Auto) 27.6, Monocytes (%) (Auto) 6.4, Eosinophils (%) (Auto) 4.5H, Basophils (%) (Auto) 0.5, Sodium Level 139, Potassium Level 5.3H, Chloride Level 108H, Carbon Dioxide Level 23, Anion Gap 8, Blood Urea Nitrogen 39H, Creatinine 1.8H, Estimat Glomerular Filtration Rate 38.8, Glucose Level 292H, Calcium Level 8.3L, Phosphorus Level 4.1, Vitamin D 25-Hydroxy [Pending], 25-Hydroxy Vitamin D2 [Pending], 25-Hydroxy Vitamin D3 [Pending] Height (Feet): 5 Height (Inches): 9.00 Weight (Pounds): 220 Libby Ceron M.D. Aug 29, 2017 23:47
[2017-08-30] VITALS: BP 137/75
[2017-08-30] MEDS: HydrALAZINE 10mg Tab ORAL SCH ×5 (00:07→23:35)
--- NOTE | 2017-08-30 02:30 | Consultation ---
DATE OF CONSULTATION: 08/29/2017 INFECTIOUS DISEASES CONSULTATION This consult is for coverage of Dr. Moses. CONSULTING PHYSICIAN: David Valle M.D. PRIMARY ATTENDING PHYSICIAN: Phuong Trinidad M.D. REASON FOR CONSULTATION: Osteomyelitis of right lower extremity, diabetic foot. HISTORY OF PRESENT ILLNESS: This is a 61-year-old white male admitted on 08/27/2017 from a senior living facility. The patient refused to taking medication and labs and was admitted with impression of altered mental status. He had a history of recent admission in 07/2017 to [facility] with diabetic foot. He had right lower extremity foot ulcers that was bone to bone. The patient was recommended to have amputation, but he refused that. He had only debridement and antibiotic treatment that was narrowed down to cefepime and clindamycin for positive wound culture of MRSA, Proteus, Morganella, and viridans strep. retirement wound care was continued. Also, the patient had a PICC line that, according to patient, is new. PAST MEDICAL HISTORY: Diabetes type 2 for 20 years, hypertension, and chronic kidney disease. MEDICATIONS: Risperdal, metronidazole, clindamycin, cefepime, insulin detemir, NovoLog, Norvasc, gabapentin, hydralazine, MiraLAX, Ambien, Tylenol, Zofran, Ativan, and Mylanta. ALLERGIES: No known drug allergies. SOCIAL HISTORY: The patient was homeless before. Smoking half pack of cigarettes daily. Not . Has no children. REVIEW OF SYSTEMS: The patient denies any fever. No chills. No nausea. No vomiting. No diarrhea. Minimally ambulatory. PHYSICAL EXAMINATION: GENERAL APPEARANCE: Seems to be well developed. VITAL SIGNS: Temperature 97.6 degrees, pulse 71, and blood pressure 155/86. Afebrile since admission. HEAD AND NECK: [place] conjunctiva. No oral lesions. HEART: Regular. LUNGS: Clear. ABDOMEN: Soft and nontender. EXTREMITIES: Edema in right lower extremity. Multiple ulcers in the right lower extremity. He has a left arm PICC line. NEUROLOGIC: Awake, alert, and oriented x3. At the time of exam, he is cooperative. Normal speech. No focal weakness. LABORATORY AND DIAGNOSTIC DATA: WBC 9.8, hemoglobin 11.2, hematocrit 34.5, and platelets 49,000. Sodium 139, potassium 5.3, chloride 108, bicarbonate 23, BUN 39, creatinine 1.8, and glucose 292. Hemoglobin A1c 11. Chest x-ray was negative. Renal ultrasound was also negative. IMPRESSION: 1. Osteomyelitis of the right lower extremity associated with diabetic foot ulcer. According to [facility] notes, the wounds reached the bone and ankle joints. 2. The patient has uncontrolled diabetes mellitus. 3. Chronic kidney disease. 4. Psychiatric issue. 5. Nicotine dependence. RECOMMENDATION: Continue cefepime and clindamycin as suggested by [facility] and will have better control of diabetes mellitus with increase in insulin dosage. I will check ESR. At the end of my exam, I thank Dr. Trinidad for involving me in the care of this patient. David Valle M.D. DR: GRAY JOB#: [id number] CC:
[2017-08-30 04:00] VITALS: BP 136/69
[2017-08-30] MEDS: Clindamycin 600mg 50 ML IVPB SCH ×3 (06:06→21:21)
[2017-08-30] MEDS: NovoLOG Insulin Flexpen SUBQ SCH ×7 (06:08→21:24)
[2017-08-30 08:00] VITALS: BP 131/74
[2017-08-30 08:22] LABS: BASOPHILS % (AUTO) 0.4 % (0.0-2.0); EOSINOPHILS % (AUTO) 4.4 % (0.0-3.0); LYMPHOCYTES % (AUTO) 25.6 % (20.0-45.0); MEAN CORPUSCULAR HEMOGLOBIN 27.6 PG (27.0-31.0); MEAN CORPUSCULAR HGB CONC 32.3 G/DL (32.0-36.0); MEAN CORPUSCULAR VOLUME 85 FL (80-99); MEAN PLATELET VOLUME 7.4 FL (6.5-10.1); MONOCYTES % (AUTO) 5.6 % (1.0-10.0); NEUTROPHILS % (AUTO) 63.9 % (45.0-75.0); PLATELET COUNT 234 K/UL (150-450); RED BLOOD COUNT 3.75 M/UL (4.70-6.10); RED CELL DISTRIBUTION WIDTH 16.8 % (11.6-14.8); WHITE BLOOD COUNT 9.8 K/UL (4.8-10.8)
[2017-08-30 08:54] LABS: ANION GAP 7 mmol/L (5-15); CALCIUM 8.1 MG/DL (8.5-10.1); CARBON DIOXIDE 23 MMOL/L (21-32); CHLORIDE 106 MMOL/L (98-107); CREATININE 1.9 MG/DL (0.55-1.30); GLOMERULAR FILTRATION RATE 36.5 mL/min (>60); POTASSIUM 4.8 MMOL/L (3.5-5.1); SODIUM 136 MMOL/L (136-145)
[2017-08-30] MEDS: Levemir Flexpen SUBQ SCH ×2 (09:24→17:24)
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
--- NOTE | 2017-08-30 10:31 | Consultation ---
DATE OF CONSULTATION: 08/29/2017 NEPHROLOGY CONSULTATION CONSULTING PHYSICIAN: Liana Bergeron M.D. REFERRING PHYSICIAN: Phuong Trinidad M.D. REASON FOR CONSULTATION: Acute versus chronic renal failure. HISTORY OF PRESENT ILLNESS: The patient is an unfortunate 61-year-old male with a past medical history significant for chronic kidney disease. The patient has a history of diabetes and hypertension about couple of years ago. He said at one point he was on dialysis and he was diagnosed with chronic kidney disease and he is [facility] and was found to have an ulceration on both lower extremities, was transferred to [facility]. He was found to have a creatinine 1.9. I was called for management of renal disease and electrolyte imbalance. PAST MEDICAL HISTORY: 1. History of chronic kidney disease, unknown stage. 2. History of anemia of chronic kidney disease. 3. Hypertension. 4. Diabetes. 5. Peripheral vascular disease. 6. History of bilateral lower extremity foot ulceration. 7. Severe hypertension. 8. Dyslipidemia. 9. History of morbid obesity. PAST SURGICAL HISTORY: History of foot ulceration. MEDICATIONS: Reviewed. ALLERGIES: No known drug allergies. FAMILY HISTORY: Noncontributory. REVIEW OF SYSTEMS: GENERAL: He denies any weight loss, weight gain, fever, chills, or night sweats. HEAD AND NECK: Denies any dysphagia, odynophagia, blurry vision, headache, or neck stiffness. PULMONARY: No shortness of breath. No cough. No sputum. CARDIOVASCULAR: Denies any chest pain or palpitations. GASTROINTESTINAL: Denies any nausea, vomiting, diarrhea, hematemesis, or hematochezia. GENITOURINARY: Denies any dysuria, frequency, or hematuria. MUSCULOSKELETAL: He denies any weakness or numbness. He has bilateral lower extremity ulceration. PHYSICAL EXAMINATION: VITAL SIGNS: The patient has temperature of 97 degrees, pulse rate of 71, blood pressure of 152/90, and respiratory rate of 18. HEAD AND NECK: No JVP. No LAD. No thyromegaly. Extraocular movements intact. Pupils are reactive to light and accommodation. LUNGS: Clear to auscultation. CARDIAC: Regular rate and rhythm. S1 and S2 are normal. No rub. ABDOMEN: Obese, nontender, and nondistended. EXTREMITIES: Bilateral foot are in dressing. LABORATORY AND DIAGNOSTIC DATA: The patient has sodium of 139, potassium of 5.2, . The patient has glucose of 293. Calcium of 8.2. Iron of 32, saturation of 18. Total protein of 7, albumin of 3.2, and globulin of 4.7. Triglycerides 270, cholesterol 155, LDL of 68, and HDL of 23. The patient had UA, which revealed specific gravity of 1.015, pH of 6, . Urine sodium of 92. Urine creatinine of 51.. Ultrasound of the kidneys revealed negative study. ASSESSMENT: 1. Most likely chronic kidney disease due to hypertensive nephropathy and diabetic nephropathy. 2. Hypertensive nephrosclerosis. 3. Hypercalcemia, needs to be on renal diet. 4. Hyperphosphatemia, . 5. uncontrolled blood pressure control. 6. uncontrolled diabetic control with A1c about 11. Again, I would like to thank Dr. Trinidad for allowing me to participate in the care of this patient. Liana Bergeron M.D. DR: Julito JOB#: [id number] CC: HARESH
--- NOTE | 2017-08-30 10:36 | Infectious Diseases Prog Note ---
Assessment/Plan Assessment/Plan IMPRESSION: # Osteomyelitis of the right lower extremity associated with diabetic foot ulcer s/p debridement at OSH. According to [facility] notes, the wounds reached the bone and ankle joints. -wound cx (at [facility]): MRSA, Proteus, Morganella, and viridans strep -wound cx here: NTD #Leukocytosis- resolved # uncontrolled diabetes mellitus. # Chronic kidney disease. #. Psychiatric issue. #. Nicotine dependence. RECOMMENDATION: -Continue cefepime and clindamycin as suggested by [facility] ( per patient has received ~4/6 weeks of tx) -f/u venous duplex BLE -blood sugar control -monitor cbc/bmp, temperatures -wound care Discussed with RN Subjective Allergies: Coded Allergies: No Known Allergies (Unverified , 08/13/17) Subjective afebrle leukocytosis resolved Objective Vital Signs Last 24 Hour Vital Signs Date Time Temp Pulse Resp B/P (MAP) Pulse Ox O2 Delivery O2 Flow Rate FiO2 08/30/17 09:23 81 131/74 08/30/17 08:00 96.8 81 17 131/74 97 08/30/17 06:06 138/70 08/30/17 04:00 97.5 72 20 136/69 98 Room Air 08/30/17 00:07 132/75 08/30/17 00:00 97.2 77 20 137/75 Room Air 08/29/17 20:00 97.9 75 20 143/83 100 Room Air 08/29/17 17:46 161/84 08/29/17 17:09 161/84 08/29/17 16:03 97.5 72 19 161/84 96 Room Air 08/29/17 12:08 155/86 08/29/17 11:16 97.6 71 19 155/86 97 Room Air Height (Feet): 5 Height (Inches): 9.00 Weight (Pounds): 220 Objective PHYSICAL EXAMINATION: GENERAL APPEARANCE: Seems to be well developed. HEAD AND NECK: Winner conjunctiva. No oral lesions. HEART: Regular. LUNGS: Clear. ABDOMEN: Soft and nontender. EXTREMITIES: Edema in right lower extremity. Multiple ulcers in the right lower extremity. He has a left arm PICC line. NEUROLOGIC: Awake, alert, and oriented x3. At the time of exam, he is cooperative. Normal speech. No focal weakness. Microbiology Date/Time Source Procedure Growth Status 08/27/17 22:20 Wound Gram Stain - Final Resulted 08/27/17 22:20 Wound Wound Culture - Preliminary NO GROWTH AFTER 24 HOURS Resulted 08/27/17 22:20 Wound Gram Stain - Final Resulted 08/27/17 22:20 Wound Wound Culture - Preliminary NO GROWTH AFTER 24 HOURS Resulted 08/27/17 18:35 Nasal Nares MRSA Culture - Final NO METHICILLIN RESISTANT STAPH AUREUS... Complete 08/27/17 18:35 Rectum VRE Culture - Final Enterococcus Faecium - Vre Complete Laboratory Tests Test 08/30/17 05:10 White Blood Count 9.8 K/UL (4.8-10.8) Red Blood Count 3.75 M/UL (4.70-6.10) L Hemoglobin 10.3 G/DL (14.2-18.0) L Hematocrit 32.0 % (42.0-52.0) L Mean Corpuscular Volume 85 FL (80-99) Mean Corpuscular Hemoglobin 27.6 PG (27.0-31.0) Mean Corpuscular Hemoglobin Concent 32.3 G/DL (32.0-36.0) Red Cell Distribution Width 16.8 % (11.6-14.8) H Platelet Count 234 K/UL (150-450) Mean Platelet Volume 7.4 FL (6.5-10.1) Neutrophils (%) (Auto) 63.9 % (45.0-75.0) Lymphocytes (%) (Auto) 25.6 % (20.0-45.0) Monocytes (%) (Auto) 5.6 % (1.0-10.0) Eosinophils (%) (Auto) 4.4 % (0.0-3.0) H Basophils (%) (Auto) 0.4 % (0.0-2.0) Erythrocyte Sedimentation Rate 85 MM/HR (0-20) H Sodium Level 136 MMOL/L (136-145) Potassium Level 4.8 MMOL/L (3.5-5.1) Chloride Level 106 MMOL/L (98-107) Carbon Dioxide Level 23 MMOL/L (21-32) Anion Gap 7 mmol/L (5-15) Blood Urea Nitrogen 40 mg/dL (7-18) H Creatinine 1.9 MG/DL (0.55-1.30) H Estimat Glomerular Filtration Rate 36.5 mL/min (>60) Glucose Level 228 MG/DL (74-106) H Calcium Level 8.1 MG/DL (8.5-10.1) L Calcium (Send out) Pending Parathyroid Hormone (Intact) Pending Current Medications Medications (Trade) Dose Ordered Sig/Eveline Route PRN Reason Start Time Stop Time Status Last Admin Dose Admin Acetaminophen (Tylenol) 650 mg Q4H PRN ORAL T>100.5 08/27/17 19:00 09/26/17 18:59 Al Hydroxide/Mg Hydroxide (Mylanta II) 30 ml Q6H PRN ORAL dyspepsia 08/27/17 19:00 09/26/17 18:59 Amlodipine Besylate (Norvasc) 10 mg DAILY ORAL 08/28/17 09:00 09/27/17 08:59 08/30/17 09:23 Atorvastatin Calcium (Lipitor) 40 mg BEDTIME ORAL 08/27/17 21:00 09/26/17 20:59 08/29/17 21:00 Cefepime HCl 2 gm/ Dextrose 110 ml @ 220 mls/hr Q12H IVPB 08/29/17 12:00 09/05/17 11:59 08/29/17 23:00 Chlorhexidine Gluconate (Susan-Hex 2%) 1 applic DAILY@2000 TOPIC 08/28/17 20:00 09/27/17 19:59 08/28/17 20:43 Clindamycin HCl/ Dextrose 50 ml @ 100 mls/hr Q8HR IVPB 08/29/17 14:00 09/05/17 13:59 08/30/17 06:06 Clonidine HCl (Catapres) 0.1 mg Q6H PRN ORAL SBP>160 08/29/17 18:00 09/28/17 17:59 08/29/17 17:46 Dextrose (Dextrose 50%) STAT PRN IV Hypoglycemia 08/27/17 22:30 09/26/17 22:29 Gabapentin (Neurontin) 400 mg THREE TIMES A DAY ORAL 08/28/17 09:00 09/27/17 08:59 08/29/17 17:09 Hydralazine HCl (Apresoline) 10 mg EVERY 6 HOURS ORAL 08/28/17 00:00 09/27/17 00:00 08/30/17 06:06 Insulin Aspart (NovoLOG) BEFORE MEALS AND HS SUBQ 08/28/17 06:30 09/27/17 06:29 08/30/17 06:08 Insulin Aspart (NovoLOG) 5 units NOVOTIAC SUBQ 08/29/17 11:50 09/28/17 11:49 08/30/17 06:08 Insulin Detemir (Levemir) 20 units BID SUBQ 08/29/17 09:00 09/27/17 20:59 08/30/17 09:24 Lorazepam (Ativan 2mg/ml 1ml) 0.5 mg Q4H PRN IV For Anxiety 08/27/17 19:00 09/03/17 18:59 Morphine Sulfate (Morphine Sulfate) 1 mg Q4H PRN IVP PAIN 4-10 08/27/17 19:00 09/03/17 18:59 Ondansetron HCl (Zofran) 4 mg Q6H PRN IVP Nausea & Vomiting 08/27/17 19:00 09/26/17 18:59 Polyethylene Glycol (Miralax) 17 gm HSPRN PRN ORAL Constipation 08/27/17 21:00 09/26/17 20:59 Risperidone (RisperDAL) 2 mg BEDTIME ORAL 08/29/17 21:00 09/28/17 20:59 08/29/17 21:00 Sodium Chloride 1,000 ml @ 75 mls/hr [id number] IV 08/28/17 14:00 09/27/17 13:59 08/30/17 06:06 Zolpidem Tartrate (Ambien) 5 mg HSPRN PRN ORAL Insomnia 08/27/17 21:00 09/03/17 20:59 Luisana Llamas M.D. Aug 30, 2017 10:36
--- NOTE | 2017-08-30 10:45 | Consultation ---
DATE OF CONSULTATION: 08/28/2017 HEMATOLOGY/ONCOLOGY CONSULTATION LATE ENTRY DATED 08/28/2017 CONSULTING PHYSICIAN: Marko Okeefe M.D. ADMITTING PHYSICIAN: Phuong Trinidad M.D. REASON FOR CONSULTATION: Significant anemia. CURRENT COMPLAINT AND HISTORY OF PRESENT ILLNESS: Dear Dr. Trinidad, Today, I had an opportunity to see one of your patients, who as you are well aware is a 61-year-old delightful gentleman with a past medical history remarkable for psychosis, coronary artery disease, hypertension, diabetes mellitus, acute osteomyelitis, right ankle, kidney disease, and multiple other comorbid condition. The patient was sent from [facility] for evaluation and degeneration of his condition. Per nursing staff, the patient refused all blood work as well as refusing current medication. During evaluation, it was found that the patient developed significant anemia with hemoglobin 8.1 and hematocrit 26.7 as well as renal failure. His creatinine 1.9. My service was called to handle the issue of significant anemia. PAST MEDICAL HISTORY: 1. Coronary artery disease. 2. Hypertension. 3. Diabetes mellitus. 4. Anemia of chronic disease. 5. Anemia of kidney disease. 6. Psychosis. 7. Noncompliance. 8. Failure to thrive MEDICATIONS: 1. Risperdal. 2. NovoLog. 3. Levemir. 4. . 5. Amlodipine. 6. Gabapentin. 7. Hydralazine. 8. Dextrose. 9. Pravastatin. 10. Zolpidem. 11. Tylenol. 12. Morphine. 13. Ativan. 14. Mylanta. ALLERGIES: No known drug allergies. FAMILY HISTORY: Noncontributory. SOCIAL HISTORY: No history of smoking. No history of alcohol abuse. No history of illicit drug use. REVIEW OF SYSTEMS: GENERAL: The patient is not in any significant distress, but looks chronically ill. RESPIRATORY: Mild shortness of breath on exertion. GASTROINTESTINAL: The patient claims constipation. NEUROMUSCULAR: The patient claims muscle aches. PHYSICAL EXAMINATION: VITAL SIGNS: T-max 97 degrees. Respiratory rate 20. Heart rate 80. Blood pressure 130/80. HEENT: Head, normocephalic and atraumatic. NECK: Supple. No thyroid enlargement. No lymphadenopathy. LUNGS: Decreased breath sounds bilaterally with a few rhonchi in the base. HEART: S1 and S2 regular. ABDOMEN: Soft and benign. No organomegaly present. Bowel sounds present. EXTREMITIES: No cyanosis, clubbing, or edema. LABORATORY DATA: WBC 10.3, hemoglobin 11.3, hematocrit 34.9, and platelets 264,000. Chemistry show creatinine 1.8. Ferritin 34. IMPRESSION: 1. Leukocytosis left shift. 2. Anemia of chronic disease. 3. Anemia of iron deficiency. 4. Decreased hemoglobin and hematocrit, rule out gastrointestinal bleed. 5. Coronary artery disease. 6. Hypertension. 7. Diabetes mellitus. 8. Acute osteomyelitis, right ankle. 9. Anemia of kidney disease. 10. Acute/chronic kidney disease. 11. Bilateral lower extremity wounds. 12. Acute toxic metabolic encephalopathy (resolved). 13. Noncompliance (the patient refused medical care). RECOMMENDATIONS: 1. Watch counts. 2. Watch coagulopathy. 3. PRBC transfusion on a p.r.n. basis. 4. Renal Doppler of bilateral lower extremities to rule out DVT. 5. Anemia workup to be completed. 6. Antibiotic IV. 7. Psychiatry evaluation. 8. Pulmonary followup. 9. Skin care. 10. Nutrition. 11. Discussed with staff. 12. Close followup. Marko Okeefe MD DR: LOWELL/LEANN JOB#: [id number] CC:
[2017-08-30] MEDS: Cefepime HCl 2 GM in D5W 110 ML IVPB SCH ×2 (11:50→23:35)
[2017-08-30 12:00] VITALS: BP 167/88
--- NOTE | 2017-08-30 12:27 | Wound Care Consultation ---
Wound Assessment Wound Assessment #1: Wound Number: 1 Wound Present on Admission: Yes New Wound: No Status Change of Wound: No Wound Location Body Site Modif: right, lateral Wound Location Body Site: malleolus/ankle Wound Type: other - diabetic foot ulcer Rachell Test: Does not Rachell Wound Thickness: Full Thickness Wound Length: 4.5 Wound Width: 5.0 Wound Depth: utd Percent of Wound Hackett/Red: 70 Percent of Wound Bed Yellow/Wh: 30 Wound Drainage Description: Serosanguineous Wound Drainage Amount: Moderate Wound Drainage Odor: None/Absent Tissue Surrounding Wound: Macerated Wound General Appearance: Reddened - yellow, Draining Wound Assessment #2: Wound Number: 2 Wound Present on Admission: Yes New Wound: No Status Change of Wound: No Wound Location Body Site Modif: right, plantar Wound Location Body Site: foot Wound Type: other - diabetic foot ulcers Rachell Test: Does not Rachell Wound Thickness: Full Thickness Wound Length: 4.0 Wound Width: 5.5 Wound Depth: 0.5 Percent of Wound Hackett/Red: 100 Wound Drainage Description: Serosanguineous Wound Drainage Amount: Moderate Wound Drainage Odor: None/Absent Tissue Surrounding Wound: Macerated Wound General Appearance: Reddened, Draining Wound Comment #1 Right lateral malleolus Diabetic foot ulcer #2 Left plantar foot, Diabetic foot ulcer Recommendation -Local wound care as ordered -Keep clean and dry -Turn and reposition -Optimize nutrition -Offload both heels -Heel protector on both heels -Assess and f/u accordingly for any changes TIFFANY BECKMAN RN Aug 30, 2017 12:27
--- NOTE | 2017-08-30 13:18 | General Progress Note ---
Assessment/Plan Problem List: (1) Renal insufficiency ICD Codes: N28.9 - Disorder of kidney and ureter, unspecified SNOMED: 711598668 (2) Altered level of consciousness ICD Codes: R40.4 - Transient alteration of awareness SNOMED: 6931634 (3) Refusal of care by patient ICD Codes: Z53.29 - Procedure and treatment not carried out because of patient' s decision for other reasons SNOMED: 021123685, 517890878 (4) Osteomyelitis of ankle ICD Codes: M86.9 - Osteomyelitis, unspecified SNOMED: 515626581 (5) Psychiatric diagnosis ICD Codes: F99 - Mental disorder, not otherwise specified SNOMED: 74536189, 070566511 (6) acute renal failrue (7) Anemia ICD Codes: D64.9 - Anemia, unspecified SNOMED: 197066989 Status: stable, progressing, tolerating diet Assessment/Plan ot pt diet ot pt diet abx dc plan Subjective Constitutional: Reports: weakness Allergies: Coded Allergies: No Known Allergies (Unverified , 08/13/17) All Systems: reviewed and negative except above Subjective calm in bed Objective Last 24 Hour Vital Signs Date Time Temp Pulse Resp B/P (MAP) Pulse Ox O2 Delivery O2 Flow Rate FiO2 08/30/17 13:04 167/88 08/30/17 09:23 81 131/74 08/30/17 08:00 96.8 81 17 131/74 97 08/30/17 06:06 138/70 08/30/17 04:00 97.5 72 20 136/69 98 Room Air 08/30/17 00:07 132/75 08/30/17 00:00 97.2 77 20 137/75 Room Air 08/29/17 20:00 97.9 75 20 143/83 100 Room Air 08/29/17 17:46 161/84 08/29/17 17:09 161/84 08/29/17 16:03 97.5 72 19 161/84 96 Room Air Intake and Output 08/30/17 08/31/17 19:00 07:00 Intake Total 225 ml Output Total 600 ml Balance -375 ml IV Total 225 ml Output Urine Total 600 ml # Voids 1 Laboratory Tests 08/30/17 05:10: White Blood Count 9.8, Red Blood Count 3.75L, Hemoglobin 10.3L, Hematocrit 32.0L , Mean Corpuscular Volume 85, Mean Corpuscular Hemoglobin 27.6, Mean Corpuscular Hemoglobin Concent 32.3, Red Cell Distribution Width 16.8H, Platelet Count 234, Mean Platelet Volume 7.4, Neutrophils (%) (Auto) 63.9, Lymphocytes (%) (Auto) 25.6, Monocytes (%) (Auto) 5.6, Eosinophils (%) (Auto) 4.4H, Basophils (%) (Auto) 0.4, Erythrocyte Sedimentation Rate 85H, Sodium Level 136, Potassium Level 4.8, Chloride Level 106, Carbon Dioxide Level 23, Anion Gap 7, Blood Urea Nitrogen 40H, Creatinine 1.9H, Estimat Glomerular Filtration Rate 36.5, Glucose Level 228H, Calcium Level 8.1L, Calcium (Send out ) [Pending], Parathyroid Hormone (Intact) [Pending] Height (Feet): 5 Height (Inches): 9.00 Weight (Pounds): 220 General Appearance: lethargic EENT: normal ENT inspection Neck: normal alignment Cardiovascular: normal peripheral pulses, normal rate, regular rhythm Respiratory/Chest: chest wall non-tender, lungs clear, normal breath sounds Abdomen: normal bowel sounds, non tender, soft Extremities: normal inspection Edema: no edema noted Arm (L), no edema noted Arm (R), no edema noted Leg (L), no edema noted Leg (R), no edema noted Pedal (L), no edema noted Pedal (R), no edema noted Generalized Neurologic: motor weakness Skin: normal pigmentation, warm/dry SHARAD BARBA Aug 30, 2017 13:18
--- NOTE | 2017-08-30 13:19 | Nephrology Progress Note ---
Assessment/Plan Assessment 1.RENATO 2.CKD 3.HTN 4.Morbid obesity 5.Anemia Plan .to continue current meds fallow up with urine study replace electrolyte as need it check pth,phos Subjective Constitutional: Reports: no symptoms HEENT: Reports: no symptoms Genitourinary: Reports: no symptoms Neurologic/Psychiatric: Reports: no symptoms Subjective alert and awake no complaints Objective Objective Last 24 Hour Vital Signs Date Time Temp Pulse Resp B/P (MAP) Pulse Ox O2 Delivery O2 Flow Rate FiO2 08/30/17 13:04 167/88 08/30/17 09:23 81 131/74 08/30/17 08:00 96.8 81 17 131/74 97 08/30/17 06:06 138/70 08/30/17 04:00 97.5 72 20 136/69 98 Room Air 08/30/17 00:07 132/75 08/30/17 00:00 97.2 77 20 137/75 Room Air 08/29/17 20:00 97.9 75 20 143/83 100 Room Air 08/29/17 17:46 161/84 08/29/17 17:09 161/84 08/29/17 16:03 97.5 72 19 161/84 96 Room Air Intake and Output 08/30/17 08/31/17 19:00 07:00 Intake Total 225 ml Output Total 600 ml Balance -375 ml IV Total 225 ml Output Urine Total 600 ml # Voids 1 Laboratory Tests 08/30/17 05:10: White Blood Count 9.8, Red Blood Count 3.75L, Hemoglobin 10.3L, Hematocrit 32.0L , Mean Corpuscular Volume 85, Mean Corpuscular Hemoglobin 27.6, Mean Corpuscular Hemoglobin Concent 32.3, Red Cell Distribution Width 16.8H, Platelet Count 234, Mean Platelet Volume 7.4, Neutrophils (%) (Auto) 63.9, Lymphocytes (%) (Auto) 25.6, Monocytes (%) (Auto) 5.6, Eosinophils (%) (Auto) 4.4H, Basophils (%) (Auto) 0.4, Erythrocyte Sedimentation Rate 85H, Sodium Level 136, Potassium Level 4.8, Chloride Level 106, Carbon Dioxide Level 23, Anion Gap 7, Blood Urea Nitrogen 40H, Creatinine 1.9H, Estimat Glomerular Filtration Rate 36.5, Glucose Level 228H, Calcium Level 8.1L, Calcium (Send out ) [Pending], Parathyroid Hormone (Intact) [Pending] Height (Feet): 5 Height (Inches): 9.00 Weight (Pounds): 220 Objective HEAD AND NECK: No JVP. No LAD. No thyromegaly. Extraocular movements intact. Pupils are reactive to light and accommodation. LUNGS: Clear to auscultation. CARDIAC: Regular rate and rhythm. S1 and S2 are normal. No rub. ABDOMEN: Obese, nontender, and nondistended. EXTREMITIES: Bilateral feet are in dressing. ORTEGA DE PAZ Aug 30, 2017 13:19
--- NOTE | 2017-08-30 13:26 | Pulmonology Progress Note ---
Assessment/Plan Problems: (1) Altered level of consciousness (2) Osteomyelitis of ankle (3) Anemia (4) Psychiatric diagnosis (5) acute renal failrue Assessment/Plan improving continue abx check culture wound care Subjective ROS Limited/Unobtainable: No Constitutional: Reports: no symptoms HEENT: Repors: no symptoms Respiratory: Reports: no symptoms Cardiovascular: Reports: no symptoms Allergies: Coded Allergies: No Known Allergies (Unverified , 08/13/17) Objective Last 24 Hour Vital Signs Date Time Temp Pulse Resp B/P (MAP) Pulse Ox O2 Delivery O2 Flow Rate FiO2 08/30/17 13:04 167/88 08/30/17 09:23 81 131/74 08/30/17 08:00 96.8 81 17 131/74 97 08/30/17 06:06 138/70 08/30/17 04:00 97.5 72 20 136/69 98 Room Air 08/30/17 00:07 132/75 08/30/17 00:00 97.2 77 20 137/75 Room Air 08/29/17 20:00 97.9 75 20 143/83 100 Room Air 08/29/17 17:46 161/84 08/29/17 17:09 161/84 08/29/17 16:03 97.5 72 19 161/84 96 Room Air Intake and Output 08/30/17 08/31/17 19:00 07:00 Intake Total 225 ml Output Total 600 ml Balance -375 ml IV Total 225 ml Output Urine Total 600 ml # Voids 1 General Appearance: WD/WN HEENT: normocephalic, atraumatic Respiratory/Chest: chest wall non-tender, lungs clear Cardiovascular: normal peripheral pulses, normal rate Abdomen: no organomegaly, non distended Genitourinary: normal external genitalia Skin: no rash, no ulcers Microbiology Date/Time Source Procedure Growth Status 08/27/17 22:20 Wound Gram Stain - Final Resulted 08/27/17 22:20 Wound Wound Culture - Preliminary NO GROWTH AFTER 48 HOURS Resulted 08/27/17 22:20 Wound Gram Stain - Final Resulted 08/27/17 22:20 Wound Wound Culture - Preliminary NO GROWTH AFTER 48 HOURS Resulted 08/27/17 18:35 Nasal Nares MRSA Culture - Final NO METHICILLIN RESISTANT STAPH AUREUS... Complete 08/27/17 18:35 Rectum VRE Culture - Final Enterococcus Faecium - Vre Complete Laboratory Tests 08/30/17 05:10: White Blood Count 9.8, Red Blood Count 3.75L, Hemoglobin 10.3L, Hematocrit 32.0L , Mean Corpuscular Volume 85, Mean Corpuscular Hemoglobin 27.6, Mean Corpuscular Hemoglobin Concent 32.3, Red Cell Distribution Width 16.8H, Platelet Count 234, Mean Platelet Volume 7.4, Neutrophils (%) (Auto) 63.9, Lymphocytes (%) (Auto) 25.6, Monocytes (%) (Auto) 5.6, Eosinophils (%) (Auto) 4.4H, Basophils (%) (Auto) 0.4, Erythrocyte Sedimentation Rate 85H, Sodium Level 136, Potassium Level 4.8, Chloride Level 106, Carbon Dioxide Level 23, Anion Gap 7, Blood Urea Nitrogen 40H, Creatinine 1.9H, Estimat Glomerular Filtration Rate 36.5, Glucose Level 228H, Calcium Level 8.1L, Calcium (Send out ) [Pending], Parathyroid Hormone (Intact) [Pending] Current Medications Medications (Trade) Dose Ordered Sig/Eveline Route PRN Reason Start Time Stop Time Status Last Admin Dose Admin Acetaminophen (Tylenol) 650 mg Q4H PRN ORAL T>100.5 08/27/17 19:00 09/26/17 18:59 Al Hydroxide/Mg Hydroxide (Mylanta II) 30 ml Q6H PRN ORAL dyspepsia 08/27/17 19:00 09/26/17 18:59 Amlodipine Besylate (Norvasc) 10 mg DAILY ORAL 08/28/17 09:00 09/27/17 08:59 08/30/17 09:23 Atorvastatin Calcium (Lipitor) 40 mg BEDTIME ORAL 08/27/17 21:00 09/26/17 20:59 08/29/17 21:00 Cefepime HCl 2 gm/ Dextrose 110 ml @ 220 mls/hr Q12H IVPB 08/29/17 12:00 09/05/17 11:59 08/30/17 11:50 Chlorhexidine Gluconate (Susan-Hex 2%) 1 applic DAILY@2000 TOPIC 08/28/17 20:00 09/27/17 19:59 08/28/17 20:43 Clindamycin HCl/ Dextrose 50 ml @ 100 mls/hr Q8HR IVPB 08/29/17 14:00 09/05/17 13:59 08/30/17 06:06 Clonidine HCl (Catapres) 0.1 mg Q6H PRN ORAL SBP>160 08/29/17 18:00 09/28/17 17:59 08/29/17 17:46 Dextrose (Dextrose 50%) STAT PRN IV Hypoglycemia 08/27/17 22:30 09/26/17 22:29 Gabapentin (Neurontin) 400 mg THREE TIMES A DAY ORAL 08/28/17 09:00 09/27/17 08:59 08/30/17 13:05 Hydralazine HCl (Apresoline) 10 mg EVERY 6 HOURS ORAL 08/28/17 00:00 09/27/17 00:00 08/30/17 13:04 Insulin Aspart (NovoLOG) BEFORE MEALS AND HS SUBQ 08/28/17 06:30 09/27/17 06:29 08/30/17 11:53 Insulin Aspart (NovoLOG) 5 units NOVOTIAC SUBQ 08/29/17 11:50 09/28/17 11:49 08/30/17 11:52 Insulin Detemir (Levemir) 20 units BID SUBQ 08/29/17 09:00 09/27/17 20:59 08/30/17 09:24 Lorazepam (Ativan 2mg/ml 1ml) 0.5 mg Q4H PRN IV For Anxiety 08/27/17 19:00 09/03/17 18:59 Morphine Sulfate (Morphine Sulfate) 1 mg Q4H PRN IVP PAIN 4-10 08/27/17 19:00 09/03/17 18:59 Ondansetron HCl (Zofran) 4 mg Q6H PRN IVP Nausea & Vomiting 08/27/17 19:00 09/26/17 18:59 Polyethylene Glycol (Miralax) 17 gm HSPRN PRN ORAL Constipation 08/27/17 21:00 09/26/17 20:59 Risperidone (RisperDAL) 2 mg BEDTIME ORAL 08/29/17 21:00 09/28/17 20:59 08/29/17 21:00 Sodium Chloride 1,000 ml @ 75 mls/hr [id number] IV 08/28/17 14:00 09/27/17 13:59 08/30/17 06:06 Zolpidem Tartrate (Ambien) 5 mg HSPRN PRN ORAL Insomnia 08/27/17 21:00 09/03/17 20:59 LINDSEY KIM Aug 30, 2017 13:26
[2017-08-30] MEDS ORDERED: Tubing IV Secondary IV ONE (14:48)
[2017-08-30] MEDS ORDERED: Cathflo Alteplase 2mg Inj INJ ONE (16:00)
[2017-08-30 20:00] VITALS: BP 154/88
[2017-08-30] MEDS: Dyna-Hex 2% Top Sol 2oz TOPIC SCH (21:21)
--- NOTE | 2017-08-30 22:40 | General Progress Note ---
Subjective Allergies: Coded Allergies: No Known Allergies (Unverified , 08/13/17) Objective Last 24 Hour Vital Signs Date Time Temp Pulse Resp B/P (MAP) Pulse Ox O2 Delivery O2 Flow Rate FiO2 08/30/17 20:00 98.1 81 20 154/88 94 Room Air 08/30/17 17:22 133/83 08/30/17 13:04 167/88 08/30/17 12:00 97.2 83 17 167/88 96 08/30/17 09:23 81 131/74 08/30/17 08:00 96.8 81 17 131/74 97 08/30/17 06:06 138/70 08/30/17 04:00 97.5 72 20 136/69 98 Room Air 08/30/17 00:07 132/75 08/30/17 00:00 97.2 77 20 137/75 Room Air Intake and Output 08/30/17 08/31/17 19:00 07:00 Intake Total 1547.5 ml Output Total 3250 ml Balance -1702.5 ml Intake Oral 900 ml IV Total 647.5 ml Output Urine Total 3250 ml # Voids 6 # Bowel Movements 2 Laboratory Tests 08/30/17 05:10: White Blood Count 9.8, Red Blood Count 3.75L, Hemoglobin 10.3L, Hematocrit 32.0L , Mean Corpuscular Volume 85, Mean Corpuscular Hemoglobin 27.6, Mean Corpuscular Hemoglobin Concent 32.3, Red Cell Distribution Width 16.8H, Platelet Count 234, Mean Platelet Volume 7.4, Neutrophils (%) (Auto) 63.9, Lymphocytes (%) (Auto) 25.6, Monocytes (%) (Auto) 5.6, Eosinophils (%) (Auto) 4.4H, Basophils (%) (Auto) 0.4, Erythrocyte Sedimentation Rate 85H, Sodium Level 136, Potassium Level 4.8, Chloride Level 106, Carbon Dioxide Level 23, Anion Gap 7, Blood Urea Nitrogen 40H, Creatinine 1.9H, Estimat Glomerular Filtration Rate 36.5, Glucose Level 228H, Calcium Level 8.1L, Calcium (Send out ) [Pending], Parathyroid Hormone (Intact) [Pending] Height (Feet): 5 Height (Inches): 9.00 Weight (Pounds): 220 Yuryhadi,Pantea M.D. Aug 30, 2017 22:40
[2017-08-31] VITALS: BP 134/73
[2017-08-31 04:00] VITALS: BP 146/90
[2017-08-31] MEDS: Clindamycin 600mg 50 ML IVPB SCH ×2 (05:59→14:47)
[2017-08-31] MEDS: HydrALAZINE 10mg Tab ORAL SCH ×2 (05:59→12:37)
[2017-08-31] MEDS: NovoLOG Insulin Flexpen SUBQ SCH ×4 (06:00→12:40)
[2017-08-31 08:00] VITALS: BP 149/79
[2017-08-31] MEDS: Levemir Flexpen SUBQ SCH (08:34)
--- NOTE | 2017-08-31 09:18 | General Progress Note ---
Assessment/Plan Assessment/Plan IMPRESSION/PLAN: 1. Leukocytosis left shift. Resolved. 2. Anemia of chronic disease. Watch counts. Anemia work up has been reviewed. --> transfuse if hgb below 8 5. Coronary artery disease. 6. Hypertension. 7. Diabetes mellitus. 8. Acute osteomyelitis, right ankle. 9. Anemia of kidney disease. 10. Acute/chronic kidney disease. 11. Bilateral lower extremity wounds. 12. Acute toxic metabolic encephalopathy (resolved). 13. Noncompliance (the patient refused medical care). Subjective Date patient seen: Aug 30, 2017 Constitutional: Reports: no symptoms HEENT: Reports: no symptoms Cardiovascular: Reports: no symptoms Respiratory: Reports: no symptoms Gastrointestinal/Abdominal: Reports: no symptoms Genitourinary: Reports: no symptoms Neurologic/Psychiatric: Reports: no symptoms Endocrine: Reports: no symptoms Hematologic/Lymphatic: Reports: no symptoms Allergies: Coded Allergies: No Known Allergies (Unverified , 08/13/17) Objective Last 24 Hour Vital Signs Date Time Temp Pulse Resp B/P (MAP) Pulse Ox O2 Delivery O2 Flow Rate FiO2 08/31/17 08:33 78 149/79 08/31/17 05:59 146/90 08/31/17 04:00 98.6 86 21 146/90 98 Room Air 08/31/17 00:00 97.5 85 20 134/73 97 Room Air 08/30/17 23:35 154/88 08/30/17 20:00 98.1 81 20 154/88 94 Room Air 08/30/17 17:22 133/83 08/30/17 13:04 167/88 08/30/17 12:00 97.2 83 17 167/88 96 08/30/17 09:23 81 131/74 Height (Feet): 5 Height (Inches): 9.00 Weight (Pounds): 220 Sahil Okeefe Aug 31, 2017 09:18
[2017-08-31 12:00] VITALS: BP 154/84
[2017-08-31 12:37] VITALS: BP 154/84
[2017-08-31 12:37] LABS: PTH INTACT 162 pg/mL (15-65)
[2017-08-31] MEDS: Cefepime HCl 2 GM in D5W 110 ML IVPB SCH (12:37)
--- NOTE | 2017-08-31 13:25 | Nephrology Progress Note ---
Assessment/Plan Assessment 1.RENATO 2.CKD 3.HTN 4.Morbid obesity 5.Anemia Plan .to continue current meds fallow up with vit d level replace electrolyte as need it avoid any NSAID or nephrotoxic Subjective Constitutional: Reports: no symptoms HEENT: Reports: no symptoms Genitourinary: Reports: no symptoms Neurologic/Psychiatric: Reports: no symptoms Subjective alert and awake no complaints Objective Objective Last 24 Hour Vital Signs Date Time Temp Pulse Resp B/P (MAP) Pulse Ox O2 Delivery O2 Flow Rate FiO2 08/31/17 12:37 154/84 08/31/17 12:00 96.4 81 20 154/84 97 Room Air 08/31/17 08:33 78 149/79 08/31/17 08:00 96.8 78 20 149/79 99 Room Air 08/31/17 05:59 146/90 08/31/17 04:00 98.6 86 21 146/90 98 Room Air 08/31/17 00:00 97.5 85 20 134/73 97 Room Air 08/30/17 23:35 154/88 08/30/17 20:00 98.1 81 20 154/88 94 Room Air 08/30/17 17:22 133/83 Intake and Output 08/31/17 09/01/17 19:00 07:00 Intake Total 300 ml Balance 300 ml IV Total 300 ml Laboratory Tests 08/31/17 10:10: Stool Occult Blood Negative Height (Feet): 5 Height (Inches): 9.00 Weight (Pounds): 220 Objective HEAD AND NECK: No JVP. No LAD. No thyromegaly. Extraocular movements intact. Pupils are reactive to light and accommodation. LUNGS: Clear to auscultation. CARDIAC: Regular rate and rhythm. S1 and S2 are normal. No rub. ABDOMEN: Obese, nontender, and nondistended. EXTREMITIES: Bilateral feet are in dressing. ORTEGA DE PAZ Aug 31, 2017 13:25
--- NOTE | 2017-08-31 13:26 | Nephrology Progress Note ---
Assessment/Plan Assessment 1.RENATO 2.CKD 3.HTN 4.Morbid obesity 5.Anemia Plan .to continue current meds fallow up with urine study replace electrolyte as need it check pth,phos Subjective Subjective alert and awake no complaints Objective Objective Last 24 Hour Vital Signs Date Time Temp Pulse Resp B/P (MAP) Pulse Ox O2 Delivery O2 Flow Rate FiO2 08/31/17 12:37 154/84 08/31/17 12:00 96.4 81 20 154/84 97 Room Air 08/31/17 08:33 78 149/79 08/31/17 08:00 96.8 78 20 149/79 99 Room Air 08/31/17 05:59 146/90 08/31/17 04:00 98.6 86 21 146/90 98 Room Air 08/31/17 00:00 97.5 85 20 134/73 97 Room Air 08/30/17 23:35 154/88 08/30/17 20:00 98.1 81 20 154/88 94 Room Air 08/30/17 17:22 133/83 Intake and Output 08/31/17 09/01/17 19:00 07:00 Intake Total 300 ml Balance 300 ml IV Total 300 ml Laboratory Tests 08/31/17 10:10: Stool Occult Blood Negative Height (Feet): 5 Height (Inches): 9.00 Weight (Pounds): 220 Objective HEAD AND NECK: No JVP. No LAD. No thyromegaly. Extraocular movements intact. Pupils are reactive to light and accommodation. LUNGS: Clear to auscultation. CARDIAC: Regular rate and rhythm. S1 and S2 are normal. No rub. ABDOMEN: Obese, nontender, and nondistended. EXTREMITIES: Bilateral feet are in dressing. ORTEGA DE PAZ Aug 31, 2017 13:26
--- NOTE | 2017-08-31 14:18 | Pulmonology Progress Note ---
Assessment/Plan Problems: (1) Altered level of consciousness (2) Osteomyelitis of ankle (3) Anemia (4) Psychiatric diagnosis (5) acute renal failrue Assessment/Plan improving check culture wound care dc planning in process pt refusing to go to previous senior living Subjective ROS Limited/Unobtainable: No Constitutional: Reports: no symptoms HEENT: Repors: no symptoms Respiratory: Reports: no symptoms Allergies: Coded Allergies: No Known Allergies (Unverified , 08/13/17) Objective Last 24 Hour Vital Signs Date Time Temp Pulse Resp B/P (MAP) Pulse Ox O2 Delivery O2 Flow Rate FiO2 08/31/17 12:37 154/84 08/31/17 12:00 96.4 81 20 154/84 97 Room Air 08/31/17 08:33 78 149/79 08/31/17 08:00 96.8 78 20 149/79 99 Room Air 08/31/17 05:59 146/90 08/31/17 04:00 98.6 86 21 146/90 98 Room Air 08/31/17 00:00 97.5 85 20 134/73 97 Room Air 08/30/17 23:35 154/88 08/30/17 20:00 98.1 81 20 154/88 94 Room Air 08/30/17 17:22 133/83 Intake and Output 08/31/17 09/01/17 19:00 07:00 Intake Total 300 ml Balance 300 ml IV Total 300 ml General Appearance: WD/WN HEENT: normocephalic Respiratory/Chest: chest wall non-tender, lungs clear Cardiovascular: normal peripheral pulses, normal rate Abdomen: normal bowel sounds, soft, non tender Genitourinary: normal external genitalia Extremities: no clubbing Skin: no rash, no lesions, no ulcers Laboratory Tests 08/31/17 10:10: Stool Occult Blood Negative Current Medications Medications (Trade) Dose Ordered Sig/Eveline Route PRN Reason Start Time Stop Time Status Last Admin Dose Admin Acetaminophen (Tylenol) 650 mg Q4H PRN ORAL T>100.5 08/27/17 19:00 09/26/17 18:59 Al Hydroxide/Mg Hydroxide (Mylanta II) 30 ml Q6H PRN ORAL dyspepsia 08/27/17 19:00 09/26/17 18:59 Amlodipine Besylate (Norvasc) 10 mg DAILY ORAL 08/28/17 09:00 09/27/17 08:59 08/31/17 08:33 Atorvastatin Calcium (Lipitor) 40 mg BEDTIME ORAL 08/27/17 21:00 09/26/17 20:59 08/30/17 21:22 Cefepime HCl 2 gm/ Dextrose 110 ml @ 220 mls/hr Q12H IVPB 08/29/17 12:00 09/05/17 11:59 08/31/17 12:37 Chlorhexidine Gluconate (Susan-Hex 2%) 1 applic DAILY@2000 TOPIC 08/28/17 20:00 09/27/17 19:59 08/30/17 21:21 Clindamycin HCl/ Dextrose 50 ml @ 100 mls/hr Q8HR IVPB 08/29/17 14:00 09/05/17 13:59 08/31/17 05:59 Clonidine HCl (Catapres) 0.1 mg Q6H PRN ORAL SBP>160 08/29/17 18:00 09/28/17 17:59 08/29/17 17:46 Dextrose (Dextrose 50%) STAT PRN IV Hypoglycemia 08/27/17 22:30 09/26/17 22:29 Gabapentin (Neurontin) 400 mg THREE TIMES A DAY ORAL 08/28/17 09:00 09/27/17 08:59 08/31/17 08:32 Hydralazine HCl (Apresoline) 10 mg EVERY 6 HOURS ORAL 08/28/17 00:00 09/27/17 00:00 08/31/17 12:37 Insulin Aspart (NovoLOG) BEFORE MEALS AND HS SUBQ 08/28/17 06:30 09/27/17 06:29 08/31/17 12:39 Insulin Aspart (NovoLOG) 5 units NOVOTIAC SUBQ 08/29/17 11:50 09/28/17 11:49 08/31/17 12:40 Insulin Detemir (Levemir) 20 units BID SUBQ 08/29/17 09:00 09/27/17 20:59 08/31/17 08:34 Lorazepam (Ativan 2mg/ml 1ml) 0.5 mg Q4H PRN IV For Anxiety 08/27/17 19:00 09/03/17 18:59 Morphine Sulfate (Morphine Sulfate) 1 mg Q4H PRN IVP PAIN 4-10 08/27/17 19:00 09/03/17 18:59 Ondansetron HCl (Zofran) 4 mg Q6H PRN IVP Nausea & Vomiting 08/27/17 19:00 09/26/17 18:59 Polyethylene Glycol (Miralax) 17 gm HSPRN PRN ORAL Constipation 08/27/17 21:00 09/26/17 20:59 Risperidone (RisperDAL) 2 mg BEDTIME ORAL 08/29/17 21:00 09/28/17 20:59 08/30/17 21:21 Sodium Chloride 1,000 ml @ 75 mls/hr [id number] IV 08/28/17 14:00 09/27/17 13:59 08/31/17 08:35 Zolpidem Tartrate (Ambien) 5 mg HSPRN PRN ORAL Insomnia 08/27/17 21:00 09/03/17 20:59 LINDSEY KIM Aug 31, 2017 14:18
--- NOTE | 2017-08-31 14:26 | General Progress Note ---
Assessment/Plan Problem List: (1) Renal insufficiency ICD Codes: N28.9 - Disorder of kidney and ureter, unspecified SNOMED: 455896814 (2) Altered level of consciousness ICD Codes: R40.4 - Transient alteration of awareness SNOMED: 0908380 (3) Refusal of care by patient ICD Codes: Z53.29 - Procedure and treatment not carried out because of patient' s decision for other reasons SNOMED: 363581125, 165509218 (4) Osteomyelitis of ankle ICD Codes: M86.9 - Osteomyelitis, unspecified SNOMED: 962286162 (5) Psychiatric diagnosis ICD Codes: F99 - Mental disorder, not otherwise specified SNOMED: 17012244, 414707201 (6) acute renal failrue (7) Anemia ICD Codes: D64.9 - Anemia, unspecified SNOMED: 896352967 Status: stable, progressing, tolerating diet Assessment/Plan ot pt diet ot pt diet abx dc plan Subjective Constitutional: Reports: weakness Allergies: Coded Allergies: No Known Allergies (Unverified , 08/13/17) All Systems: reviewed and negative except above Subjective calm in bed Objective Last 24 Hour Vital Signs Date Time Temp Pulse Resp B/P (MAP) Pulse Ox O2 Delivery O2 Flow Rate FiO2 08/31/17 12:37 154/84 08/31/17 12:00 96.4 81 20 154/84 97 Room Air 08/31/17 08:33 78 149/79 08/31/17 08:00 96.8 78 20 149/79 99 Room Air 08/31/17 05:59 146/90 08/31/17 04:00 98.6 86 21 146/90 98 Room Air 08/31/17 00:00 97.5 85 20 134/73 97 Room Air 08/30/17 23:35 154/88 08/30/17 20:00 98.1 81 20 154/88 94 Room Air 08/30/17 17:22 133/83 Intake and Output 08/31/17 09/01/17 19:00 07:00 Intake Total 300 ml Balance 300 ml IV Total 300 ml Laboratory Tests 08/31/17 10:10: Stool Occult Blood Negative Height (Feet): 5 Height (Inches): 9.00 Weight (Pounds): 220 General Appearance: lethargic EENT: normal ENT inspection Neck: normal alignment Cardiovascular: normal peripheral pulses, normal rate, regular rhythm Respiratory/Chest: chest wall non-tender, lungs clear, normal breath sounds Abdomen: normal bowel sounds, non tender, soft Extremities: normal inspection Edema: no edema noted Arm (L), no edema noted Arm (R), no edema noted Leg (L), no edema noted Leg (R), no edema noted Pedal (L), no edema noted Pedal (R), no edema noted Generalized Neurologic: responsive, motor weakness Skin: normal pigmentation, warm/dry SHARAD BARBA Aug 31, 2017 14:26
--- NOTE | 2017-08-31 19:04 | General Progress Note ---
Assessment/Plan Status: stable, progressing Subjective Neurologic/Psychiatric: Reports: anxiety, depressed, emotional problems Allergies: Coded Allergies: No Known Allergies (Unverified , 08/13/17) Objective Last 24 Hour Vital Signs Date Time Temp Pulse Resp B/P (MAP) Pulse Ox O2 Delivery O2 Flow Rate FiO2 08/31/17 12:37 154/84 08/31/17 12:00 96.4 81 20 154/84 97 Room Air 08/31/17 08:33 78 149/79 08/31/17 08:00 96.8 78 20 149/79 99 Room Air 08/31/17 05:59 146/90 08/31/17 04:00 98.6 86 21 146/90 98 Room Air 08/31/17 00:00 97.5 85 20 134/73 97 Room Air 08/30/17 23:35 154/88 08/30/17 20:00 98.1 81 20 154/88 94 Room Air Intake and Output 08/31/17 09/01/17 19:00 07:00 Intake Total 300 ml Balance 300 ml IV Total 300 ml Laboratory Tests 08/31/17 10:10: Stool Occult Blood Negative Height (Feet): 5 Height (Inches): 9.00 Weight (Pounds): 220 General Appearance: no apparent distress, alert, overweight Neurologic: alert, oriented x 3, depressed affect Libby Ceron M.D. Aug 31, 2017 19:03
--- NOTE | 2017-08-31 21:26 | General Progress Note ---
Assessment/Plan Assessment/Plan IMPRESSION/PLAN: 1. Leukocytosis left shift. Resolved. 2. Anemia of chronic disease. Watch counts. Anemia work up has been reviewed. --> transfuse if hgb below 8 5. Coronary artery disease. 6. Hypertension. 7. Diabetes mellitus. 8. Acute osteomyelitis, right ankle. 9. Anemia of kidney disease. 10. Acute/chronic kidney disease. 11. Bilateral lower extremity wounds. 12. Acute toxic metabolic encephalopathy (resolved). 13. Noncompliance (the patient refused medical care). Subjective Constitutional: Reports: no symptoms HEENT: Reports: no symptoms Cardiovascular: Reports: no symptoms Respiratory: Reports: no symptoms Gastrointestinal/Abdominal: Reports: no symptoms Genitourinary: Reports: no symptoms Neurologic/Psychiatric: Reports: no symptoms Endocrine: Reports: no symptoms Hematologic/Lymphatic: Reports: no symptoms Allergies: Coded Allergies: No Known Allergies (Unverified , 08/13/17) Subjective NAD Objective Last 24 Hour Vital Signs Date Time Temp Pulse Resp B/P (MAP) Pulse Ox O2 Delivery O2 Flow Rate FiO2 08/31/17 12:37 154/84 08/31/17 12:00 96.4 81 20 154/84 97 Room Air 08/31/17 08:33 78 149/79 08/31/17 08:00 96.8 78 20 149/79 99 Room Air 08/31/17 05:59 146/90 08/31/17 04:00 98.6 86 21 146/90 98 Room Air 08/31/17 00:00 97.5 85 20 134/73 97 Room Air 08/30/17 23:35 154/88 Intake and Output 08/31/17 09/01/17 19:00 07:00 Intake Total 300 ml Balance 300 ml IV Total 300 ml Laboratory Tests 08/31/17 10:10: Stool Occult Blood Negative Height (Feet): 5 Height (Inches): 9.00 Weight (Pounds): 220 General Appearance: no apparent distress EENT: normal ENT inspection Neck: normal alignment Cardiovascular: no gallop/murmur Neurologic: recruiter manager II-XII grossly normal Skin: warm/dry Sahil Okeefe Aug 31, 2017 21:26
--- NOTE | 2017-09-01 09:01 | Diagnostic Imaging Report ---
APPROVED REPORT CPT Code: 13322 Present Symptoms Comments: R/O DVT BILATERAL: Imaging reveals a patent deep venous system bilaterally. There is no evidence of thrombus within the femoral, popliteal or tibial segments. The greater saphenous veins are also within normal limits. Doppler indicates normal spontaneous flow within these segments.
[2017-09-02] MEDS ORDERED: Cefepime HCl 2 GM in NS 110 ML IVPB SCH ×2
[2017-09-02 11:57] LABS: VITAMIN D 25-OH TOTAL 14 ng/mL (.)
--- NOTE | 2017-09-02 14:59 | Discharge Summary ---
Discharge Summary Hospital Course Date of Admission Aug 27, 2017 at 18:05 Date of Discharge Aug 31, 2017 at 16:18 Admitting Diagnosis AMS LOPEZ Grijalva is a 61 year old male who was admitted on Aug 27, 2017 at 18:05 for Altered Mental Status Hospital Course [id number] Discharge Discharge Disposition Patient was discharged to SNF/Subacute Facility(03) Discharge Diagnoses: Dee Gudino NP Sep 02, 2017 14:59
--- NOTE | 2017-09-03 07:15 | Discharge Summary 2 SIG ---
DATE OF ADMISSION: 08/27/2017 DATE OF DISCHARGE: 08/31/2017 CONSULTANTS: 1. Sahil Okeefe M.D. 2. Libby Ceron M.D. 3. Kong Starr D.O. 4. Liana Bergeron M.D. 5. David Valle M.D. BRIEF HOSPITAL COURSE: The patient is a 61-year-old male with history of psychiatric disorder, hypertension, diabetes mellitus, and a recent acute osteomyelitis on the right ankle presented to ED from long term. Per long term staff, the patient was refusing all medical care at the facility. On arrival to ED, there was no sign of distress, no agitation. Blood workup showed leukocytosis, WBC was 12.5 and hemoglobin was 8.2. Creatinine was elevated to 1.9 and BUN was 43. Chest x-ray showed no acute cardiopulmonary pathology. The patient was admitted to the medical floor for evaluation of altered level of consciousness. The patient was recently admitted to [facility] due to diabetic foot with osteomyelitis. He was continued on cefepime and clindamycin as suggested by [facility]. The patient has received 4/6 weeks total needed antibiotic therapy. Creatinine was elevated. The patient had renal disease and electrolyte imbalance. A1c was 11. Renal ultrasound showed no hydronephrosis. He underwent psychiatric evaluation. The patient appeared to have persecutory delusions and was anxious and hyperverbal. He had poor insight and judgment and feels the staff has been ganging up against him. He was diagnosed to have schizophrenia and was given risperidone 10 mg nightly. He came in with bilateral diabetic foot ulcer. He was given wound care. Wound culture showed coagulase-negative Staph. The patient was anemic and anemia workup showed low iron stores. Stool OB was negative. Blood levels eventually stabilized. He was given wound care and was continued on IV antibiotics. The patient was eventually discharged back to long term. FINAL DIAGNOSES: 1. Acute toxic metabolic encephalopathy, resolved. 2. Acute renal failure. 3. Recent acute osteomyelitis of the right ankle. 4. Anemia of iron deficiency. 5. Uncontrolled diabetes mellitus. 6. Refusal of care. 7. Hypertension. 8. Schizophrenia. 9. Morbid obesity. 10. Anemia of chronic disease. 11. Coronary artery disease. 12. Bilateral lower extremity diabetic ulcer, present on admission. DISCHARGE DISPOSITION: The patient was discharged back to [facility]. DISCHARGE MEDICATIONS: Refer to medication list. To continue cefepime and clindamycin for two more weeks. Phuong Trinidad M.D. I have been assigned to dictate discharge summary on this account and I was not involved in the patient's management. Dee Gudino N.P. DR: Robles JOB#: [id number] CC:
== END 2017-08-31 16:18 | DRG 539 ==
LOC: EDBD 17:13 → EMR 17:46 → 3E 18:05 → EDBEDREQ 18:10 → 4E 20:18
DX: M86.171 Other acute osteomyelitis, right ankle and foot (principal); G92 Toxic encephalopathy; N17.9 Acute kidney failure, unspecified; E11.22 Type 2 diabetes mellitus with diabetic chronic kidney disease; D50.9 Iron deficiency anemia, unspecified; F17.200 Nicotine dependence, unspecified, uncomplicated; I12.9 Hypertensive chronic kidney disease with stage 1 through stage 4 chronic kidney disease, or unspecified chronic kidney disease; L97.516 Non-pressure chronic ulcer of other part of right foot with bone involvement without evidence of necrosis; E11.65 Type 2 diabetes mellitus with hyperglycemia; E11.621 Type 2 diabetes mellitus with foot ulcer; D63.8 Anemia in other chronic diseases classified elsewhere; E66.01 Morbid (severe) obesity due to excess calories; I25.10 Atherosclerotic heart disease of native coronary artery without angina pectoris; N18.9 Chronic kidney disease, unspecified; Z79.4 Long term (current) use of insulin; E83.52 Hypercalcemia; E83.39 Other disorders of phosphorus metabolism; Z91.19 Patient's noncompliance with other medical treatment and regimen; F20.9 Schizophrenia, unspecified
CPT/HCPCS: 36415; 71010; 76775; 80048; 80053; 80061; 80307; 81003; 82043; 82044; 82270; 82306; 82550; 82553; 82570; 82607; 82728; 82746; 82962; 83036; 83540; 83550; 83970; 84100; 84300; 84443; 84484; 85025; 85651; 87070; 87081; 87205; 89050; 93005; 93970; 97803; 99285; J1815; S0077; S5561